=== PATIENT | female | born 1935 | race Caucasian/White ===

== ENCOUNTER 2016-09-02 13:51 | Inpatient (IN) ==
--- NOTE | 2016-09-02 14:34 | Emergency Department Note ---
Disposition Clinical Impression: Weakness, UTI (urinary tract infection) Disposition: Home, Self-Care Condition: Fair Referrals: Darius Oscar MD [Primary Care Provider] - Forms: Work/School Release, ED Satisfaction Letter Time of Disposition: 16:19 ([facility]) General Adult HPI - General Chief complaint: ED General Medical Stated complaint: Unable to walk since Tues/shooting pains in head Time Seen by Provider: 09/02/16 14:00 Source: patient Mode of arrival: wheelchair Limitations: no limitations Nursing Notes Reviewed: Yes Vital Signs Reviewed: Yes - History of Present Illness HPI Narrative: Patient recently diagnosed with urinary tract infection for reasons they decided not to give her antibiotics one is a thought that the anabolic certificate but it was because of her Coumadin that she was taking then had still a seconds going to fill a second prescription but did not fill because they were told not to fill the prescription because not to worry about urinary tract infection as a result the patient's progressively weakened over the past couple weeks now unable to bear weight and ambulate around is actually just getting worse family's brought her in for evaluation at this time and wgt transfer only Discharge from a local nursing care facility for physical therapy admission recently Onset (ago): week(s) Location: other (generalized) Radiation: non-radiation Pain Scale: 0 Quality: aching Consistency: Worsening Improves with: nothing Worsens with: nothing Associated symptoms: Reports: confusion, loss of appetite, malaise, weakness. Denies: chest pain, cough, diaphoresis, fever/chills, headaches, nausea/vomiting , seizure, shortness of breath, syncope Treatments Prior to Arrival: none - Related Data Home Medications Medication Instructions Recorded Confirmed Amitriptyline [Elavil] 25 mg PO HS 09/02/16 09/02/16 Aspirin 81 mg PO DAILY 09/02/16 09/02/16 Atenolol [Tenormin] 25 mg PO DAILY 09/02/16 09/02/16 Atorvastatin [Lipitor] 40 mg PO HS 09/02/16 09/02/16 LORazepam [Ativan] 0.5 mg PO HS 09/02/16 09/02/16 Levothyroxine [Synthroid] 150 mcg PO DAILY 09/02/16 09/02/16 Lisinopril [Zestril] 5 mg PO DAILY 09/02/16 09/02/16 Memantine HCl 5 mg PO DAILY 09/02/16 09/02/16 Omeprazole 20 mg PO DAILY 09/02/16 09/02/16 Warfarin [Coumadin] 2 mg PO 1800 09/02/16 09/02/16 Allergies Allergy/AdvReac Type Severity Reaction Status Date / Time No Known Allergies Allergy Verified 09/02/16 14:12 All systems ED: reviewed and negative except as stated. Constitutional: Reports: weakness. Denies: fever, chills Eyes: Denies: eye pain ENT ED: Denies: ear pain, throat pain, dental pain Cardiovascular: Denies: chest pain, palpitations, dyspnea on exertion Respiratory: Denies: cough, dyspnea, wheezes Gastrointestinal: Denies: abdominal pain, nausea, vomiting Genitourinary: Reports: other (indwelling cath). Denies: urgency, dysuria Musculoskeletal: Denies: back pain, neck pain Integumentary: Denies: abrasion Neurological: Denies: headache Psychiatric: Denies: anxiety Endocrine: Reports: fatigue Hematological/Lymphatic: Denies: easy bleeding Allergic/Immunologic: Denies: facial swelling Past Medical History - Past Medical History Attestation: Yes The following information was validated with the patient. Source: patient, old records reviewed, nursing notes reviewed Medical history: Reports: arthritis, atrial fibrillation, cancer, CVA, dementia , diabetes, GERD, hyperlipidemia, hypertension, malignancy, migraine, myocardial infarction, thyroid disease, syncope, TIA Surgical history: Reports: appendectomy, cholecystectomy Psychiatric history: Reports: anxiety, depression FITTER MACHINIST history: Reports: no FITTER MACHINIST history - Social History Smoking Status: Former smoker Smokeless Tobacco Status: No Alcohol use: Reports: none Drug use: Reports: none Physical Exam - General Limitations: physical limitation (global weakness) General appearance: alert, in no apparent distress - Head Head exam: atraumatic, normocephalic, normal inspection - Eye Eye exam: Present: normal appearance, PERRL, EOMI - ENT ENT exam: normal exam, normal oropharynx, mucous membranes moist, normal external ear exam - Neck Neck exam: Present: normal inspection, full ROM, trachea midline - Chest Chest inspection: Present: normal inspection, symmetric chest wall rise - Respiratory Respiratory exam: Present: normal lung sounds bilaterally - Cardiovascular Cardiovascular exam: Present: regular rate, normal rhythm, normal heart sounds - Abdominal Exam Abdominal exam: Present: soft, Non-Tender, normal bowel sounds. Absent: mass, pulsatile mass - Extremities Exam Extremities exam: Present: normal inspection, full ROM, normal capillary refill , other (global weakness) - Expanded Lower Extremity Exam Gait: observed and normal - Back Exam Back exam: Present: normal inspection, full ROM. Absent: muscle spasm - Neurological Exam Neurological exam: Present: alert, oriented X3, CN II-XII intact - Psychiatric Psychiatric exam: Present: normal affect, normal mood - Skin Skin exam: Present: warm, dry, intact, normal color Course Course Narrative: Patient seen and examined patient was so weak that she would had to be assisted by 2 male staff members to get her even into the bed and move her about as result of the patient was admitted as result of the generalized weakness most likely secondary to the underlying UTI with possible need for her back to the nursing care facility upon return patient admitted services Dr. Merchant who is agreed transferred to [facility] anabolic started in the ER Vital Signs Temperature 97.7 F 09/02/16 13:54 Pulse Rate 78 09/02/16 13:54 Respiratory Rate 18 09/02/16 13:54 Blood Pressure 119/74 09/02/16 13:54 O2 Sat by Pulse Oximetry 100 09/02/16 13:54 Temperature 97.7 F 09/02/16 13:54 Pulse Rate 78 09/02/16 13:54 Respiratory Rate 18 09/02/16 13:54 Blood Pressure 119/74 09/02/16 13:54 O2 Sat by Pulse Oximetry 100 09/02/16 13:54 Oxygen Delivery Oxygen Delivery Room Air Medical Decision Making - [facility] Narrative Medical decision making narrative: UTI or sepsis generalized debilitated state stroke - Medical Records Medical records reviewed: Yes I reviewed the patient's medical records. - Lab Data Lab results reviewed: Yes I reviewed the patient's lab results. - Radiology Data Radiology results reviewed: Yes I reviewed the patient's radiology results. ITS Impressions Head CT 09/02/16 14:34 IMPRESSION: No acute intracranial abnormality. D/ / Vj Riley MD / Vj Riley MD Interpreting Provider: Vj Riley MD Critical Care Time Critical Care Time: No
[2016-09-02 14:49] LABS: Basophils % 0.3 %; Eosinophils # 0.3 K/mcL (0.0-0.6); Eosinophils % 2.1 %; Hematocrit 35.2 % (35.3-44.9); Hemoglobin 11.1 g/dL (11.5-15.4); Immature Granulocytes % 0.4 % (0-4); Lymphocytes # 1.2 K/mcL (0.6-4.6); Lymphocytes % 8.9 %; Mean Corpuscular HGB Conc 31.5 g/dL (31.6-35.5); Mean Corpuscular Hemoglobin 27.9 pg (28.0-33.3); Mean Corpuscular Volume 88.4 fL (83.0-100.0); Mean Platelet Volume 10.2 fL (9.4-12.4); Monocytes % 7.5 %; Neutrophils # 11.1 K/mcL (1.6-8.9); Platelet Count 508 K/mcL (140-400); Red Blood Count 3.98 M/mcL (3.82-4.97); Red Cell Distribution Width 15.4 % (11.5-14.5); Segmented Neutrophils % 80.8 %
[2016-09-02 14:52] LABS: Bilirubin,Urine Small (Negative); Blood,Urine Large (Negative); Clarity,Urine Cloudy (Clear); Color,Urine Yellow (Yellow); Glucose,Urine (UA) Normal (Normal); Ketones,Urine Trace mg/dL (Negative); Leukocyte Esterase,Urine Trace (Negative); Nitrite,Urine Negative (Negative); PH,Urine 5.5 pH Units (5.0-8.0); Protein,Urine >=300 mg/dL (Neg-Trace); Specific Gravity,Urine >= 1.030 (1.010-1.025); Urobilinogen,Urine Normal (Normal)
[2016-09-02 14:56] LABS: INR 2.4; Prothrombin Time 26.7 Seconds (9.4-12.1)
[2016-09-02 14:57] LABS: Squamous Epithelial Cell,Urine Few per lpf (None-Few); WBC,Urine 30-50 per hpf (0-3)
[2016-09-02 14:58] LABS: Bacteria,Urine Moderate per hpf (None-Few); Mucus,Urine Few (Few); Yeast,Urine Moderate per hpf (None Seen)
[2016-09-02 14:58] LABS: Activated Partial Thrombo Time 30.6 Seconds (26.0-36.0)
[2016-09-02 15:05] LABS: BUN/Creatinine Ratio 16 (6-26); Blood Urea Nitrogen 13 mg/dL (7-20); Calcium 8.1 mg/dL (8.6-10.8); Carbon Dioxide 28 mEq/L (19-29); Chloride 99 mEq/L (98-109); Glucose 166 mg/dL (70-99); Osmolality,Calculated 296 (280-300); Potassium 3.1 mEq/L (3.5-4.5); Sodium 141 mEq/L (136-145); eGFR For African Americans > 60 (> 60); eGFR For Non-African Americans > 60 (> 60)
[2016-09-02] MEDS ORDERED: CefTRIAXone 1,000 MG in D5% in Water (Mini-Bag+) 100 ML IVPB STA (16:17)
[2016-09-02] MEDS ORDERED: 0.9 % Sodium Chloride 1,000 ML IVC SCH (16:30)
[2016-09-02] MEDS ORDERED: Naloxone 0.4 MG/ML INJ IVP PRN (17:00)
[2016-09-02] MEDS: *HR* Warfarin 2 MG TABLET PO SCH (23:15)
[2016-09-02] MEDS: *HR* LORazepam 0.5 MG TABLET PO SCH (23:15)
[2016-09-03 06:20] LABS: Basophils # 0.1 K/mcL (0.0-0.2); Basophils % 0.6 %; Eosinophils # 0.5 K/mcL (0.0-0.6); Eosinophils % 4.1 %; Hematocrit 32.9 % (35.3-44.9); Hemoglobin 10.4 g/dL (11.5-15.4); INR 2.1; Immature Granulocytes % 0.9 % (0-4); Lymphocytes # 1.9 K/mcL (0.6-4.6); Lymphocytes % 15.1 %; Mean Corpuscular HGB Conc 31.6 g/dL (31.6-35.5); Mean Corpuscular Hemoglobin 27.7 pg (28.0-33.3); Mean Corpuscular Volume 87.7 fL (83.0-100.0); Neutrophils # 9.1 K/mcL (1.6-8.9); Platelet Count 512 K/mcL (140-400); Prothrombin Time 23.4 Seconds (9.4-12.1); Red Blood Count 3.75 M/mcL (3.82-4.97); Red Cell Distribution Width 15.5 % (11.5-14.5); Segmented Neutrophils % 71.3 %
[2016-09-03 06:34] LABS: BUN/Creatinine Ratio 18 (6-26); Blood Urea Nitrogen 13 mg/dL (7-20); Calcium 7.8 mg/dL (8.6-10.8); Carbon Dioxide 28 mEq/L (19-29); Chloride 102 mEq/L (98-109); Glucose 114 mg/dL (70-99); Magnesium 0.8 mg/dL (1.6-2.6); Osmolality,Calculated 297 (280-300); Phosphorous 2.9 mg/dL (2.3-4.7); Potassium 2.8 mEq/L (3.5-4.5); Sodium 143 mEq/L (136-145); eGFR For African Americans > 60 (> 60); eGFR For Non-African Americans > 60 (> 60)
[2016-09-03] MEDS: 0.9 % Sodium Chloride 1,000 ML IVC SCH ×2 (07:43→22:21)
[2016-09-03] MEDS: Aspirin 81 MG TAB.CHEW PO SCH (09:29)
--- NOTE | 2016-09-03 11:07 | Internal Med History&Physical ---
Date of Encounter: 09/03/16 Time of Encounter: 10:35 Assessment and Plan (1) UTI (urinary tract infection) Current visit: Yes Status: Acute She has been started empirically on Rocephin. We will continue this and add lactobacillus and await final urine culture report. Qualifiers: Urinary tract infection type: site unspecified Hematuria presence: with hematuria Qualified Code(s): N39.0 - Urinary tract infection, site not specified; R31.9 - Hematuria, unspecified (2) Anemia Current visit: Yes Status: Chronic Will order anemia testing in a.m. Qualifiers: Anemia type: unspecified type Qualified Code(s): D64.9 - Anemia, unspecified (3) Hypokalemia Current visit: Yes Status: Acute Etiology not obvious. We will give supplemental potassium and monitor labs (4) DM type 2 (diabetes mellitus, type 2) Current visit: Yes Status: Chronic We will check hemoglobin A1c in a.m. Qualifiers: Diabetes mellitus complication status: with unspecified complications Diabetes mellitus fci insulin use: without fci use Qualified Code( s): E11.8 - Type 2 diabetes mellitus with unspecified complications (5) Hypomagnesemia Current visit: Yes Status: Acute We will give IV magnesium sulfate and recheck labs in a.m. (6) Atrial fibrillation Current visit: No Status: Chronic Continue Coumadin for CVA prophylaxis. Echocardiogram done 07/16/2015 showed LVEF of 50-55%. There is no significant valvular dysfunction. Left atrial size was normal at 2.9 cm. Qualifiers: Atrial fibrillation type: chronic Qualified Code(s): I48.2 - Chronic atrial fibrillation (7) HTN (hypertension) Current visit: No Status: Acute Continue Tenormin and lisinopril and monitor blood pressure. Qualifiers: Hypertension type: essential hypertension Qualified Code(s): I10 - Essential (primary) hypertension Internal Medicine - H&P: HPI Chief complaint: Weakness, UTI Admitted From: Home Plans for Post Hospital Care: Home History of present illness: Ms. Maradiaga is a 80 year old female who was brought to the emergency room by family after she had progressive weakness and diagnosis of urinary tract infection as an outpatient. She was evaluated in emergency room and found to have anemia with leukocytosis and hypokalemia. She was admitted to [facility] floor for ongoing care needs. She is a fair historian. She has a diagnosis of dementia but is able to answer some questions with what seems to be reliable answers. Past Med Surg Social Fam HX - Past Medical History Medical history: arthritis, atrial fibrillation, cancer, CVA, dementia, diabetes , GERD, hyperlipidemia, hypertension, malignancy, migraine, myocardial infarction, thyroid disease, syncope, TIA Psychiatric history: anxiety, depression - Past Surgical History Surgical History: appendectomy, cholecystectomy - Social History Smoking Status: Former smoker Smokeless Tobacco Status: No Alcohol use: none Drug use: none - Family History Daughter Adopted: No Living Status: Still Living Hx Family Cancer: Yes (cervical) Hx Family Endocrine Disorder: Yes (diabetes mellitus) Internal Medicine - H&P: Meds Amitriptyline [Elavil] 25 mg PO HS 09/02/16 [History] Aspirin 81 mg PO DAILY 09/02/16 [History] Atenolol [Tenormin] 25 mg PO DAILY 09/02/16 [History] Atorvastatin [Lipitor] 40 mg PO HS 09/02/16 [History] LORazepam [Ativan] 0.5 mg PO HS 09/02/16 [History] Levothyroxine [Synthroid] 150 mcg PO DAILY 09/02/16 [History] Lisinopril [Zestril] 5 mg PO DAILY 09/02/16 [History] Memantine HCl 5 mg PO DAILY 09/02/16 [History] Omeprazole 20 mg PO DAILY 09/02/16 [History] Warfarin [Coumadin] 2 mg PO 1800 09/02/16 [History] Allergies No Known Allergies Allergy (Verified 09/02/16 14:12) All Systems PM: A 10-system review of systems was performed and is negative for pertinent findings except as documented above in the HPI. Review of systems: General: Her weight has changed minimally from 79.379 kg on 07/15/2015 to 81.647 kg on admission now. Cardiovascular: She has history of hypertension and ASHD status post LA, date unknown. She has chronic atrial fibrillation. She states she had an exercise stress test and heart catheter several years ago. She reports a remote left leg DVT. Respiratory: She reports smoking from age [age] never reaching 2 packs per day. She denies chronic lung disease GI: She has had cholecystectomy. She has a diagnosis of GERD. She denies disorders of her liver or exocrine pancreas : She has had urinary retention in the past but denies other kidney or bladder disorders Neurologic: She claims she has had multiple strokes in the past. Available records show a reported stroke in 2013 for which she received TPA and was transferred [facility]. She had no significant residual neurologic deficit. She reports she had seizures in the past but does not take seizure medication at this time. Endocrine: The chart reports a diagnosis of DM 2 but she denies this. Hemoglobin A1c was slightly elevated at 6.8% on 09/25/2014. She has hypothyroidism and hyperlipidemia Hematology/oncology: She reports right breast cancer in the past but states she is now cancer free and claims a biopsy ( ? excisional) was done. She has a diagnosis of anemia. She denies other internal malignancies Psychiatric: She has depression but denies anxiety or other mental health issues Musk skeletal: She has DJD but denies gout or other bone joint or muscle disorders. - Constitutional Vitals: Temp Pulse Resp BP Pulse Ox 97.9 F 93 17 117/67 92 09/03/16 10:40 09/03/16 10:40 09/03/16 10:40 09/03/16 10:40 09/03/16 10:40 Exam: Gen.: She is a well-developed well-nourished female who appears in no severe distress at present time. HEENT: Head is atraumatic and normal cephalic. Eyes: EOMI. There is no scleral icterus. Mouth: Mucosa is moist. Neck: Supple and nontender. There is no thyromegaly or masses noted. Heart: Irregularly irregular without murmurs or gallops Lungs: No wheezes or crackles are heard. Abdomen: Soft and nontender. No masses or guarding are noted. Extremities: There is no cyanosis edema or clubbing noted. Dorsalis pedis and posttibial pulses are 1-2 over 2 bilaterally. Neurologic: Mental status: She is talkative and seems to be a fair historian at best. She does not know her age, location, or length of stay. Cranial nerves: Smile is symmetric. Forehead wrinkles bilaterally. Tongue protrudes midline. EOMI. Motor: There is no pronator drift. Cerebellar: Finger to nose is intact bilaterally. Skin: Warm and dry Internal Med - H&P Results - Labs CBC & Chem 7: 09/03/16 06:00 09/03/16 06:00 Labs: Short CBC 09/03/16 Range/Units 06:00 WBC 12.8 H (4.3-11.1) K/mcL Hgb 10.4 L (11.5-15.4) g/dL Hct 32.9 L (35.3-44.9) % Plt Count 512 H (140-400) K/mcL Neutrophils # 9.1 H (1.6-8.9) K/mcL BMP 09/03/16 06:00 Sodium 143 Potassium 2.8 L Chloride 102 Carbon Dioxide 28 BUN 13 Creatinine 0.72 Glucose 114 H Calcium 7.8 L
[2016-09-03] MEDS ORDERED: Magnesium Sulfate 1 GM in D5% in Water 100 ML IVPB ONE (11:25)
[2016-09-03] MEDS: CefTRIAXone 1,000 MG in D5% in Water (Mini-Bag+) 100 ML IVPB SCH (12:13)
[2016-09-03] MEDS: Lactobacillus 1 EACH CAP.SPRINK PO SCH ×2 (12:13→21:13)
[2016-09-03] MEDS: *HR* Warfarin 2 MG TABLET PO SCH (17:39)
[2016-09-03 20:23] LABS: Adenovirus F 40/41 PCR Not detected (Not detect); Astrovirus PCR Not detected (Not detect); C.difficile Toxin A/B by PCR Not detected (Not detect); Campylobacter by PCR Not detected (Not detect); Cryptosporidium by PCR Not detected (Not detect); Cyclospora cayetanensis PCR Not detected (Not detect); E. coli O157 by PCR Not detected (Not detect); Entamoeba histolytica PCR Not detected (Not detect); Enteroaggregative E.coli(EAEC) Not detected (Not detect); Enteropathogenic E.coli(EPEC) Not detected (Not detect); Enterotoxigenic E.coli (ETEC) Not detected (Not detect); Giardia lamblia PCR Not detected (Not detect); Norovirus GI/GII PCR Not detected (Not detect); Plesiomonas shigelloides PCR Not detected (Not detect); Rotavirus A PCR Not detected (Not detect); Salmonella PCR Not detected (Not detect); Sapovirus PCR Not detected (Not detect); Shig/EnteroinvasiveE coli EIEC Not detected (Not detect); Shigalike tox-prod E coli STEC Not detected (Not detect); Vibrio PCR Not detected (Not detect); Vibrio cholerae PCR Not detected (Not detect); Yersinia enterocolitica PCR Not detected (Not detect)
[2016-09-03] MEDS: *HR* LORazepam 0.5 MG TABLET PO SCH (21:16)
[2016-09-04 06:29] LABS: Basophils # 0.1 K/mcL (0.0-0.2); Basophils % 0.5 %; Eosinophils # 0.7 K/mcL (0.0-0.6); Eosinophils % 5.7 %; Hemoglobin 9.6 g/dL (11.5-15.4); Immature Granulocytes % 0.6 % (0-4); Lymphocytes # 1.9 K/mcL (0.6-4.6); Lymphocytes % 16.1 %; Mean Corpuscular Hemoglobin 27.8 pg (28.0-33.3); Mean Platelet Volume 9.8 fL (9.4-12.4); Monocytes # 0.9 K/mcL (0.0-1.3); Monocytes % 7.4 %; Neutrophils # 8.2 K/mcL (1.6-8.9); Platelet Count 499 K/mcL (140-400); Red Blood Count 3.45 M/mcL (3.82-4.97); Red Cell Distribution Width 15.3 % (11.5-14.5); Segmented Neutrophils % 69.7 %
[2016-09-04 06:41] LABS: Magnesium 0.9 mg/dL (1.6-2.6)
[2016-09-04 07:07] LABS: Thyroid Stimulating Hormone 0.908 mcIU/mL (0.350-4.840)
[2016-09-04 08:20] LABS: Hemoglobin A1C 6.4 %
--- NOTE | 2016-09-04 10:27 | Internal Med Progress Note ---
Date of Encounter: 09/04/16 Time of Encounter: 10:15 - Assessment and plan (1) UTI (urinary tract infection) Current Visit: Yes Status: Acute Assessment and plan: September 04. Most likely asymptomatic bacteriuria. Urine culture was negative. We will discontinue Rocephin. Qualifiers: Urinary tract infection type: site unspecified Hematuria presence: with hematuria Qualified Code(s): N39.0 - Urinary tract infection, site not specified; R31.9 - Hematuria, unspecified (2) Anemia Current Visit: Yes Status: Chronic Assessment and plan: September 04. Anemia testing is pending. Recheck labs in a.m. Qualifiers: Anemia type: unspecified type Qualified Code(s): D64.9 - Anemia, unspecified (3) Hypokalemia Current Visit: Yes Status: Acute Assessment and plan: September 04. Continue supplemental potassium. Recheck labs in a.m. (4) DM type 2 (diabetes mellitus, type 2) Current Visit: Yes Status: Chronic Assessment and plan: September 04. Hemoglobin A1c was 6.4%. Accu-Cheks are acceptable. She remains diet controlled. Qualifiers: Diabetes mellitus complication status: with unspecified complications Diabetes mellitus group home insulin use: without group home use Qualified Code( s): E11.8 - Type 2 diabetes mellitus with unspecified complications (5) Hypomagnesemia Current Visit: Yes Status: Acute Assessment and plan: September 04. Magnesium level minimally changed at 0.9. We will give another 1 gram of magnesium sulfate IV and recheck labs in a.m. (6) Atrial fibrillation Current Visit: No Status: Chronic Assessment and plan: September 04. Echocardiogram done 07/16/2015 showed LVEF of 50-55%. There is no significant valvular dysfunction. Left atrial size was normal at 2.9 cm. Continue Coumadin Qualifiers: Atrial fibrillation type: chronic Qualified Code(s): I48.2 - Chronic atrial fibrillation (7) HTN (hypertension) Current Visit: No Status: Acute Assessment and plan: September 04. Blood pressures are fluctuating significantly. Continue Tenormin and lisinopril at present doses. Qualifiers: Hypertension type: essential hypertension Qualified Code(s): I10 - Essential (primary) hypertension - Subjective Interval history: September 04. She has no new complaints. She denies pain or dyspnea. Nursing reports she has pulled 4 IVs out - Constitutional Vitals: Temp Pulse Resp BP Pulse Ox 97.8 F 100 18 175/84 93 09/04/16 06:26 09/04/16 08:08 09/04/16 06:26 09/04/16 06:26 09/04/16 08:08 Exam: She is resting comfortably in bed. Her heart is irregularly irregular with rate approximately 100/m. Lungs are clear anteriorly. Extremities show no edema. Internal Medicine: Result - Labs CBC & Chem 7: 09/04/16 06:13 09/03/16 06:00 Labs: Short CBC 09/04/16 Range/Units 06:13 WBC 11.8 H (4.3-11.1) K/mcL Hgb 9.6 L (11.5-15.4) g/dL Hct 30.0 L (35.3-44.9) % Plt Count 499 H (140-400) K/mcL Neutrophils # 8.2 (1.6-8.9) K/mcL - ABG Interpretation ABG results: PT/INR, D-dimer PT 23.4 Seconds (9.4-12.1) H 09/03/16 06:00 Consult Discharge Plan - Plan Referrals: Darius Oscar MD [Primary Care Provider] - 1 week
[2016-09-04] MEDS ORDERED: Magnesium Sulfate 1 GM in D5% in Water 100 ML IVPB ONE (10:32)
[2016-09-04 11:28] LABS: Folate 9.6 ng/mL (7.0-31.4)
[2016-09-04] MEDS: CefTRIAXone 1,000 MG in D5% in Water (Mini-Bag+) 100 ML IVPB SCH (11:41)
[2016-09-04] MEDS: Lactobacillus 1 EACH CAP.SPRINK PO SCH (11:41)
[2016-09-04] MEDS: Aspirin 81 MG TAB.CHEW PO SCH (11:59)
[2016-09-04] MEDS: *HR* Warfarin 2 MG TABLET PO SCH (17:30)
[2016-09-04] MEDS: *HR* LORazepam 0.5 MG TABLET PO SCH (19:58)
[2016-09-05 06:06] LABS: INR 1.6; Prothrombin Time 17.2 Seconds (9.4-12.1)
[2016-09-05 06:08] LABS: Basophils # 0.1 K/mcL (0.0-0.2); Basophils % 0.5 %; Eosinophils # 0.5 K/mcL (0.0-0.6); Eosinophils % 3.6 %; Hematocrit 31.5 % (35.3-44.9); Hemoglobin 9.9 g/dL (11.5-15.4); Immature Granulocytes % 0.6 % (0-4); Lymphocytes # 1.8 K/mcL (0.6-4.6); Lymphocytes % 14.1 %; Mean Corpuscular HGB Conc 31.4 g/dL (31.6-35.5); Mean Corpuscular Hemoglobin 27.5 pg (28.0-33.3); Mean Corpuscular Volume 87.5 fL (83.0-100.0); Monocytes % 7.6 %; Neutrophils # 9.4 K/mcL (1.6-8.9); Platelet Count 529 K/mcL (140-400); Red Cell Distribution Width 15.5 % (11.5-14.5); Segmented Neutrophils % 73.6 %
[2016-09-05 06:19] LABS: BUN/Creatinine Ratio 13 (6-26); Blood Urea Nitrogen 9 mg/dL (7-20); Calcium 8.2 mg/dL (8.6-10.8); Carbon Dioxide 27 mEq/L (19-29); Chloride 102 mEq/L (98-109); Glucose 104 mg/dL (70-99); Osmolality,Calculated 289 (280-300); Potassium 3.9 mEq/L (3.5-4.5); Sodium 140 mEq/L (136-145); eGFR For African Americans > 60 (> 60); eGFR For Non-African Americans > 60 (> 60)
[2016-09-05] MEDS: Aspirin 81 MG TAB.CHEW PO SCH (09:09)
--- NOTE | 2016-09-05 11:03 | Internal Med Progress Note ---
Date of Encounter: 09/05/16 Time of Encounter: 10:50 - Assessment and plan (1) UTI (urinary tract infection) Current Visit: Yes Status: Acute Assessment and plan: September 04. Most likely asymptomatic bacteriuria. Urine culture was negative. We will discontinue Rocephin. September 05. Continue to observe off antibiotics. Qualifiers: Urinary tract infection type: site unspecified Hematuria presence: with hematuria Qualified Code(s): N39.0 - Urinary tract infection, site not specified; R31.9 - Hematuria, unspecified (2) Anemia Current Visit: Yes Status: Chronic Assessment and plan: September 04. Anemia testing is pending. Recheck labs in a.m. September 05. Anemia testing showed iron 15, transferrin saturation 7%, and ferritin 450. B12 and folate were normal 367 and 9.6 respectively. We will start trial of ferrous sulfate and vitamin C in a.m. Qualifiers: Anemia type: unspecified type Qualified Code(s): D64.9 - Anemia, unspecified (3) Hypokalemia Current Visit: Yes Status: Acute Assessment and plan: September 04. Continue supplemental potassium. Recheck labs in a.m. September 05. Resolved. Continue supplemental potassium and monitor labs. (4) DM type 2 (diabetes mellitus, type 2) Current Visit: Yes Status: Chronic Assessment and plan: September 04. Hemoglobin A1c was 6.4%. Accu-Cheks are acceptable. She remains diet controlled. Qualifiers: Diabetes mellitus complication status: with unspecified complications Diabetes mellitus termite technician insulin use: without termite technician use Qualified Code( s): E11.8 - Type 2 diabetes mellitus with unspecified complications (5) Hypomagnesemia Current Visit: Yes Status: Acute Assessment and plan: September 04. Magnesium level minimally changed at 0.9. We will give another 1 gram of magnesium sulfate IV and recheck labs in a.m. September 05. Continue to monitor magnesium level. (6) Atrial fibrillation Current Visit: No Status: Chronic Assessment and plan: September 04. Echocardiogram done 07/16/2015 showed LVEF of 50-55%. There is no significant valvular dysfunction. Left atrial size was normal at 2.9 cm. Continue Coumadin Qualifiers: Atrial fibrillation type: chronic Qualified Code(s): I48.2 - Chronic atrial fibrillation (7) HTN (hypertension) Current Visit: No Status: Acute Qualifiers: Hypertension type: essential hypertension Qualified Code(s): I10 - Essential (primary) hypertension - Subjective Interval history: September 04. She has no new complaints. She denies pain or dyspnea. Nursing reports she has pulled 4 IVs out September 05. She has no new complaints. - Constitutional Vitals: Temp Pulse Resp BP Pulse Ox 98.3 F 93 17 171/84 92 09/05/16 06:50 09/05/16 08:15 09/05/16 08:15 09/05/16 08:15 09/05/16 08:15 Exam: She is resting comfortably in bed and appears in no acute distress. Her affect is cheerful. Heart is irregular. Lungs are clear. Extremities show no pitting edema. I reviewed her medications and lab results. Internal Medicine: Result - Labs CBC & Chem 7: 09/05/16 05:20 09/05/16 05:20 Labs: Short CBC 09/05/16 Range/Units 05:20 WBC 12.7 H (4.3-11.1) K/mcL Hgb 9.9 L (11.5-15.4) g/dL Hct 31.5 L (35.3-44.9) % Plt Count 529 H (140-400) K/mcL Neutrophils # 9.4 H (1.6-8.9) K/mcL BMP 09/05/16 05:20 Sodium 140 Potassium 3.9 D Chloride 102 Carbon Dioxide 27 BUN 9 Creatinine 0.68 Glucose 104 H Calcium 8.2 L - ABG Interpretation ABG results: PT/INR, D-dimer PT 17.2 Seconds (9.4-12.1) H 09/05/16 05:20 Consult Discharge Plan - Plan Referrals: Darius Oscar MD [Primary Care Provider] - 1 week
[2016-09-05] MEDS: Magnesium Oxide 400 MG TABLET PO SCH ×2 (12:05→19:50)
[2016-09-05] MEDS: *HR* Warfarin 2 MG TABLET PO SCH (17:45)
[2016-09-05] MEDS: *HR* LORazepam 0.5 MG TABLET PO SCH (19:50)
[2016-09-06] MEDS: Ascorbic Acid 500 MG TABLET PO SCH ×2 (05:14→08:00)
[2016-09-06 06:42] LABS: Basophils # 0.1 K/mcL (0.0-0.2); Basophils % 0.4 %; Eosinophils # 0.3 K/mcL (0.0-0.6); Eosinophils % 1.9 %; Hematocrit 34.8 % (35.3-44.9); Hemoglobin 10.9 g/dL (11.5-15.4); Immature Granulocytes % 0.8 % (0-4); Lymphocytes % 16.3 %; Mean Corpuscular HGB Conc 31.3 g/dL (31.6-35.5); Mean Corpuscular Hemoglobin 27.5 pg (28.0-33.3); Mean Corpuscular Volume 87.9 fL (83.0-100.0); Mean Platelet Volume 9.7 fL (9.4-12.4); Monocytes # 0.8 K/mcL (0.0-1.3); Monocytes % 5.8 %; Platelet Count 571 K/mcL (140-400); Red Blood Count 3.96 M/mcL (3.82-4.97); Red Cell Distribution Width 15.5 % (11.5-14.5); Segmented Neutrophils % 74.8 %
[2016-09-06 06:44] LABS: Lymphocytes # 2.4 K/mcL (0.6-4.6); Neutrophils # 10.8 K/mcL (1.6-8.9)
[2016-09-06 06:48] LABS: INR 1.6
[2016-09-06 07:03] LABS: Alanine Aminotransferase 22 Units/L (0-55); Albumin 2.8 g/dL (3.5-5.0); Albumin/Globulin Ratio 0.7 (1.1-2.2); Alkaline Phosphatase 154 Units/L (38-126); Aspartate Amino Transferase 28 Units/L (5-34); BUN/Creatinine Ratio 13 (6-26); Bilirubin,Total 0.6 mg/dL (0.2-1.2); Blood Urea Nitrogen 10 mg/dL (7-20); Calcium 8.8 mg/dL (8.6-10.8); Carbon Dioxide 27 mEq/L (19-29); Chloride 99 mEq/L (98-109); Globulin 4.1 g/dL (2.4-3.5); Glucose 164 mg/dL (70-99); Magnesium 1.2 mg/dL (1.6-2.6); Osmolality,Calculated 291 (280-300); Potassium 3.7 mEq/L (3.5-4.5); Sodium 139 mEq/L (136-145); Total Protein 6.9 g/dL (6.0-8.3); eGFR For African Americans > 60 (> 60); eGFR For Non-African Americans > 60 (> 60)
[2016-09-06] MEDS: Magnesium Oxide 400 MG TABLET PO SCH (07:55)
[2016-09-06] MEDS: Aspirin 81 MG TAB.CHEW PO SCH (07:55)
--- NOTE | 2016-09-06 12:11 | Discharge Summary ---
Date of Encounter: 09/06/16 Time of Encounter: 11:50 - Discharge Diagnosis (1) UTI (urinary tract infection) Priority: Primary Status: Resolved Qualifiers: Urinary tract infection type: site unspecified Hematuria presence: with hematuria Qualified Code(s): N39.0 - Urinary tract infection, site not specified; R31.9 - Hematuria, unspecified (2) Anemia Priority: Secondary Status: Chronic Qualifiers: Anemia type: iron deficiency Iron deficiency anemia type: unspecified iron deficiency Qualified Code(s): D50.9 - Iron deficiency anemia, unspecified (3) Hypokalemia Priority: Secondary Status: Resolved (4) DM type 2 (diabetes mellitus, type 2) Priority: Secondary Status: Chronic Qualifiers: Diabetes mellitus complication status: with unspecified complications Diabetes mellitus multi care technician insulin use: without correction use Qualified Code( s): E11.8 - Type 2 diabetes mellitus with unspecified complications (5) Hypomagnesemia Priority: Secondary Status: Acute (6) Atrial fibrillation Priority: Secondary Status: Chronic Qualifiers: Atrial fibrillation type: chronic Qualified Code(s): I48.2 - Chronic atrial fibrillation (7) HTN (hypertension) Priority: Secondary Status: Chronic Qualifiers: Hypertension type: essential hypertension Qualified Code(s): I10 - Essential (primary) hypertension - Discharge Medications Home Medications: Amitriptyline [Elavil] 25 mg PO HS 09/02/16 [History] Aspirin 81 mg PO DAILY 09/02/16 [History] Atenolol [Tenormin] 25 mg PO DAILY 09/02/16 [History] Atorvastatin [Lipitor] 40 mg PO HS 09/02/16 [History] LORazepam [Ativan] 0.5 mg PO HS 09/02/16 [History] Levothyroxine [Synthroid] 150 mcg PO DAILY 09/02/16 [History] Omeprazole 20 mg PO DAILY 09/02/16 [History] Warfarin [Coumadin] 2 mg PO 1800 09/02/16 [History] Ascorbic Acid [Vitamin C] 500 mg PO DAILY@0630 tablet 09/06/16 [Rx] Ferrous Sulfate 325 mg PO DAILY@0630 tablet 09/06/16 [Rx] Lisinopril [Zestril] 20 mg PO DAILY #0 09/06/16 [Rx] Magnesium Oxide [Mag-Ox] 400 mg PO BID tablet 09/06/16 [Rx] Memantine HCl 10 mg PO DAILY #0 09/06/16 [Rx] Potassium Chloride 20 meq PO BID tab.er.prt 09/06/16 [Rx] Allergies/Adverse Reactions: Allergies No Known Allergies Allergy (Verified 09/02/16 14:12) Procedures/tests Complete & Pending: Procedures Performed prior 72 hours Category Date Time Status CT head/brain wo con [CT] Stat Cat Scan 09/06/16 23:[address] pelvis wo no iv no oral [CT] Stat Cat Scan 09/06/16 23:42 Completed Date of admission: 09/03/16 18:44 Primary care physician: Darius Oscar MD - Patient Status Disposition: Transfer Hospital Swing Bed Condition: Fair Functional capacity at discharge: uses cane/walker Overall status at discharge: patient is progressing back to baseline - Discharge Instructions - Diet and Activity Diet: diabetic diet Hospital course: Ms. Maradiaga is a 80 year old female who was brought to the emergency room by family after she had progressive weakness and diagnosis of urinary tract infection as an outpatient. She was evaluated in emergency room and found to have anemia with leukocytosis and hypokalemia. She was admitted to [facility] for ongoing care needs. Initial orders were written emergency room physician. I saw her on September 03 and performed history and physical. She was given Rocephin empirically for possible UTI. Urine culture returned showing no growth so Rocephin was discontinued. The Kasper catheter was discontinued on September 05 and she had spontaneous voiding. Physical therapy and occupational therapy evaluations with ongoing interventions were done. She progressed satisfactorily and will continue therapy in swing bed. Anemia testing showed iron 15, transferrin saturation 7%, and ferritin 450. B12 and folate were normal 367 and 9.6 respectively. She was started on ferrous sulfate and vitamin C . These will be continued in swing bed. Hypokalemia resolved with supplemental potassium. This will be continued in swing bed. She was given magnesium sulfate by the IV and oral routes. Her magnesium level had improved to 1.2 on day of discharge to swing bed. She will continue oral magnesium supplementation She remained in atrial fibrillation during her hospital stay. Coumadin was continued. On September 06 arrangements were completed for her to be discharged into swing bed where she will continue to receive rehabilitation therapy. - Time Spent with Patient Total time spent providing and/or coordinating discharge services: - Constitutional Vitals: Temp Pulse Resp BP Pulse Ox 97.7 F 86 16 153/68 96 09/06/16 10:33 09/06/16 10:33 09/06/16 10:33 09/06/16 10:33 09/06/16 10:33
[2016-09-06 14:27] VITALS: BP 155/96
[2016-09-07] MEDS ORDERED: Ascorbic Acid 500 MG TABLET PO SCH (06:30)
== END 2016-09-06 14:32 | disposition other institution (70) | DRG 812 ==
LOC: INPPIK 13:51 → EMEROOPIK 13:51 → INPPIK 16:51
PROVIDERS: ADMIT Internal Medicine; ATTEND Internal Medicine

== ENCOUNTER 2016-09-06 14:53 | Inpatient (IN) ==
[2016-09-06] MEDS: *HR* Warfarin 2 MG TABLET PO SCH (18:53)
[2016-09-06] MEDS ORDERED: D5% in Water 1,000 ML IVC PRN (20:08)
[2016-09-06] MEDS ORDERED: Dextrose Gel 15 GM PO PRN ×2 (20:08)
[2016-09-06] MEDS ORDERED: *HR* Dextrose 50 % in Water (Syg) 50 ML SYRINGE IVP PRN (20:08)
[2016-09-06] MEDS: Magnesium Oxide 400 MG TABLET PO SCH (20:38)
[2016-09-06] MEDS: *HR* LORazepam 0.5 MG TABLET PO SCH (20:38)
[2016-09-06] MEDS: Insulin LISPRO 300 UNITS/3 ML VIAL SQ SCH (20:39)
[2016-09-07 04:48] LABS: Basophils # 0.1 K/mcL (0.0-0.2); Basophils % 0.4 %; Eosinophils # 0.5 K/mcL (0.0-0.6); Eosinophils % 2.9 %; Hematocrit 32.7 % (35.3-44.9); Hemoglobin 10.4 g/dL (11.5-15.4); Immature Granulocytes % 0.6 % (0-4); Lymphocytes # 2.3 K/mcL (0.6-4.6); Lymphocytes % 13.2 %; Mean Corpuscular HGB Conc 31.8 g/dL (31.6-35.5); Mean Corpuscular Hemoglobin 27.4 pg (28.0-33.3); Mean Corpuscular Volume 86.3 fL (83.0-100.0); Mean Platelet Volume 10.2 fL (9.4-12.4); Monocytes # 1.1 K/mcL (0.0-1.3); Monocytes % 6.5 %; Neutrophils # 13.1 K/mcL (1.6-8.9); Platelet Count 562 K/mcL (140-400); Red Blood Count 3.79 M/mcL (3.82-4.97); Red Cell Distribution Width 15.4 % (11.5-14.5); Segmented Neutrophils % 76.4 %
[2016-09-07 04:53] LABS: INR 1.7; Prothrombin Time 18.3 Seconds (9.4-12.1)
[2016-09-07 04:56] LABS: Activated Partial Thrombo Time 30.3 Seconds (26.0-36.0)
[2016-09-07 05:09] LABS: BUN/Creatinine Ratio 12 (6-26); Blood Urea Nitrogen 9 mg/dL (7-20); Calcium 8.5 mg/dL (8.6-10.8); Carbon Dioxide 26 mEq/L (19-29); Chloride 97 mEq/L (98-109); Glucose 143 mg/dL (70-99); Osmolality,Calculated 279 (280-300); Potassium 4.7 mEq/L (3.5-4.5); Sodium 134 mEq/L (136-145); eGFR For African Americans > 60 (> 60); eGFR For Non-African Americans > 60 (> 60)
[2016-09-07] MEDS ORDERED: Ascorbic Acid 500 MG TABLET PO SCH (06:30)
[2016-09-07] MEDS ORDERED: Trolamine Salicylate/Aloe Vera 35.4 GM TUBE TP PRN (06:42)
[2016-09-07] MEDS: Insulin LISPRO 300 UNITS/3 ML VIAL SQ SCH ×4 (08:06→22:10)
[2016-09-07] MEDS: Magnesium Oxide 400 MG TABLET PO SCH ×2 (08:06→22:10)
[2016-09-07] MEDS: Lisinopril 20 MG TABLET PO SCH (08:07)
[2016-09-07] MEDS: Aspirin 81 MG TAB.CHEW PO SCH (08:07)
[2016-09-07] MEDS: *HR* Warfarin 2 MG TABLET PO SCH (19:06)
[2016-09-07] MEDS: *HR* LORazepam 0.5 MG TABLET PO SCH (22:10)
[2016-09-08] MEDS: Insulin LISPRO 300 UNITS/3 ML VIAL SQ SCH ×4 (07:53→21:09)
[2016-09-08] MEDS: Aspirin 81 MG TAB.CHEW PO SCH (08:05)
[2016-09-08] MEDS: Lisinopril 20 MG TABLET PO SCH (08:06)
[2016-09-08] MEDS: Magnesium Oxide 400 MG TABLET PO SCH ×2 (08:06→21:08)
[2016-09-08] MEDS ORDERED: Ascorbic Acid 500 MG TABLET PO SCH (09:00)
--- NOTE | 2016-09-08 12:31 | Internal Med Progress Note ---
Date of Encounter: 09/08/16 Time of Encounter: 12:20 - Assessment and plan (1) Weakness Current Visit: No Status: Acute Assessment and plan: September 08. Continue PT and OT intervention. (2) Atrial fibrillation Current Visit: No Status: Chronic Assessment and plan: September 08. Echocardiogram done 07/16/2015 showed LVEF of 50-55%. There is no significant valvular dysfunction. Left atrial size was normal at 2.9 cm. Continue Coumadin Qualifiers: Atrial fibrillation type: chronic Qualified Code(s): I48.2 - Chronic atrial fibrillation (3) Anemia Current Visit: No Status: Chronic Assessment and plan: September 08. Continue ferrous sulfate and vitamin C. Anemia testing done 2016 Qualifiers: Anemia type: iron deficiency Iron deficiency anemia type: unspecified iron deficiency Qualified Code(s): D50.9 - Iron deficiency anemia, unspecified (4) Hypokalemia Current Visit: No Status: Resolved Assessment and plan: September 08. Continue supplemental potassium and monitor labs. (5) DM type 2 (diabetes mellitus, type 2) Current Visit: No Status: Chronic Assessment and plan: September 08. Hemoglobin A1c was 6.4%. Accu-Cheks are acceptable. She remains diet controlled. Qualifiers: Diabetes mellitus complication status: with unspecified complications Diabetes mellitus intermodal customer service insulin use: without intermodal customer service use Qualified Code( s): E11.8 - Type 2 diabetes mellitus with unspecified complications (6) Hypomagnesemia Current Visit: No Status: Acute Assessment and plan: September 08. Continue magnesium supplementation and recheck labs in a.m. (7) Urinary retention Current Visit: Yes Status: Acute Assessment and plan: September 08. Will start Urecholine - Subjective Interval history: September 08. She was hospitalized in acute care September 02- after presenting to ER with weakness. It was initially felt she possibly had UTI but urine culture was negative and antibiotics were not continued. She was also treated for anemia, hypokalemia, and hypomagnesemia. She was discharged to swing bed for ongoing rehabilitation therapy prior to discharge home. She is sitting in a chair at present and has no new complaints. - Constitutional Vitals: Temp Pulse Resp BP Pulse Ox 98.8 F 100 18 126/76 97 09/08/16 08:22 09/08/16 08:22 09/08/16 08:22 09/08/16 08:22 09/08/16 08:22 Exam: Her affect is bright and cheerful. Heart is irregularly irregular. Lungs are clear. Extremities show no edema. I reviewed her medications and recent labs. Internal Medicine: Result - Labs CBC & Chem 7: 09/07/16 04:15 09/07/16 04:15 - ABG Interpretation ABG results: PT/INR, D-dimer PT 18.3 Seconds (9.4-12.1) H 09/07/16 04:15 Consult Discharge Plan - Plan Referrals: Darius Oscar MD [Primary Care Provider] - 1 week
[2016-09-08] MEDS ORDERED: *HR* LORazepam 0.5 MG TABLET PO PRN (15:40)
[2016-09-08] MEDS: *HR* Warfarin 2 MG TABLET PO SCH (16:49)
[2016-09-09 05:44] LABS: Basophils # 0.1 K/mcL (0.0-0.2); Basophils % 0.5 %; Eosinophils # 0.6 K/mcL (0.0-0.6); Eosinophils % 4.5 %; Hemoglobin 10.5 g/dL (11.5-15.4); Immature Granulocytes % 1.2 % (0-4); Lymphocytes # 2.4 K/mcL (0.6-4.6); Lymphocytes % 17.8 %; Mean Corpuscular HGB Conc 31.8 g/dL (31.6-35.5); Mean Corpuscular Hemoglobin 27.4 pg (28.0-33.3); Mean Corpuscular Volume 86.2 fL (83.0-100.0); Mean Platelet Volume 10.3 fL (9.4-12.4); Monocytes # 1.2 K/mcL (0.0-1.3); Monocytes % 8.4 %; Platelet Count 550 K/mcL (140-400); Red Blood Count 3.83 M/mcL (3.82-4.97); Red Cell Distribution Width 15.9 % (11.5-14.5); Segmented Neutrophils % 67.6 %
[2016-09-09 05:49] LABS: INR 1.5; Prothrombin Time 16.1 Seconds (9.4-12.1)
[2016-09-09 05:58] LABS: Neutrophils # 9.3 K/mcL (1.6-8.9)
[2016-09-09 06:03] LABS: BUN/Creatinine Ratio 16 (6-26); Blood Urea Nitrogen 12 mg/dL (7-20); Carbon Dioxide 26 mEq/L (19-29); Chloride 100 mEq/L (98-109); Glucose 109 mg/dL (70-99); Magnesium 1.2 mg/dL (1.6-2.6); Osmolality,Calculated 284 (280-300); Potassium 4.7 mEq/L (3.5-4.5); Sodium 137 mEq/L (136-145); eGFR For African Americans > 60 (> 60); eGFR For Non-African Americans > 60 (> 60)
[2016-09-09] MEDS: Ascorbic Acid 500 MG TABLET PO SCH (06:47)
[2016-09-09] MEDS: Lisinopril 20 MG TABLET PO SCH (10:11)
[2016-09-09] MEDS: Aspirin 81 MG TAB.CHEW PO SCH (10:11)
[2016-09-09] MEDS: Magnesium Oxide 400 MG TABLET PO SCH ×2 (10:12→21:38)
[2016-09-09] MEDS: Insulin LISPRO 300 UNITS/3 ML VIAL SQ SCH ×3 (12:51→19:18)
[2016-09-09] MEDS: *HR* Warfarin 2 MG TABLET PO SCH (19:20)
[2016-09-10] MEDS: Insulin LISPRO 300 UNITS/3 ML VIAL SQ SCH ×5 (00:36→21:21)
[2016-09-10] MEDS: Ascorbic Acid 500 MG TABLET PO SCH (06:24)
[2016-09-10] MEDS: Lisinopril 20 MG TABLET PO SCH (08:35)
[2016-09-10] MEDS: Aspirin 81 MG TAB.CHEW PO SCH (08:35)
[2016-09-10] MEDS: Magnesium Oxide 400 MG TABLET PO SCH ×2 (08:35→21:13)
[2016-09-10] MEDS: *HR* Warfarin 2 MG TABLET PO SCH (17:06)
--- NOTE | 2016-09-10 18:39 | Internal Med Progress Note ---
Date of Encounter: 09/10/16 Time of Encounter: 18:30 - Assessment and plan (1) Weakness Current Visit: No Status: Acute Assessment and plan: September 08. Continue PT and OT intervention. (2) Atrial fibrillation Current Visit: No Status: Chronic Assessment and plan: September 08. Echocardiogram done 07/16/2015 showed LVEF of 50-55%. There is no significant valvular dysfunction. Left atrial size was normal at 2.9 cm. Continue Coumadin September 10. Continue Coumadin. Will change from atenolol to Toprol-XL to better control blood pressure and heart rate Qualifiers: Atrial fibrillation type: chronic Qualified Code(s): I48.2 - Chronic atrial fibrillation (3) Anemia Current Visit: No Status: Chronic Assessment and plan: September 08. Continue ferrous sulfate and vitamin C. Anemia testing done 2016September 10. We will recheck CBC and other labs in a.m. Qualifiers: Anemia type: iron deficiency Iron deficiency anemia type: unspecified iron deficiency Qualified Code(s): D50.9 - Iron deficiency anemia, unspecified (4) DM type 2 (diabetes mellitus, type 2) Current Visit: No Status: Chronic Assessment and plan: September 08. Hemoglobin A1c was 6.4%. Accu-Cheks are acceptable. She remains diet controlled. Qualifiers: Diabetes mellitus complication status: with unspecified complications Diabetes mellitus custodial insulin use: without terminal worker use Qualified Code( s): E11.8 - Type 2 diabetes mellitus with unspecified complications (5) Hypomagnesemia Current Visit: No Status: Acute Assessment and plan: September 08. Continue magnesium supplementation and recheck labs in a.m. September 10. Magnesium level remains low at 1.2. We will increase magnesium oxide to t.i.d. (6) Urinary retention Current Visit: Yes Status: Acute Assessment and plan: September 08. Will start Urecholine September 10. Continue Urecholine - Subjective Interval history: September 08. She was hospitalized in acute care September 02- after presenting to ER with weakness. It was initially felt she possibly had UTI but urine culture was negative and antibiotics were not continued. She was also treated for anemia, hypokalemia, and hypomagnesemia. She was discharged to swing bed for ongoing rehabilitation therapy prior to discharge home. She is sitting in a chair at present and has no new complaints. September 10. She has no new complaints. - Constitutional Vitals: Temp Pulse Resp BP Pulse Ox 97.7 F 93 18 149/73 95 09/10/16 06:52 09/10/16 06:52 09/10/16 06:52 09/10/16 06:52 09/10/16 06:52 Exam: She is resting comfortably in bed. Heart is irregularly irregular. Lungs are clear anteriorly. Extremities show no edema. I reviewed her medications. I reviewed her lab results from 09/09/2016. Internal Medicine: Result - Labs CBC & Chem 7: 09/09/16 04:10 09/09/16 04:10 - ABG Interpretation ABG results: PT/INR, D-dimer PT 16.1 Seconds (9.4-12.1) H 09/09/16 04:10 Consult Discharge Plan - Plan Referrals: Darius Oscar MD [Primary Care Provider] - 1 week
[2016-09-10] MEDS: Metoprolol XL (24 HR) Succ 50 MG TAB.ER.24H PO SCH (21:16)
[2016-09-11] MEDS: Magnesium Oxide 400 MG TABLET PO SCH ×2 (05:33→17:13)
[2016-09-11] MEDS: Ascorbic Acid 500 MG TABLET PO SCH (05:33)
[2016-09-11 06:19] LABS: Basophils # 0.1 K/mcL (0.0-0.2); Basophils % 0.8 %; Eosinophils # 0.4 K/mcL (0.0-0.6); Eosinophils % 2.9 %; Hematocrit 36.5 % (35.3-44.9); Hemoglobin 11.5 g/dL (11.5-15.4); Immature Granulocytes % 1.2 % (0-4); Mean Corpuscular HGB Conc 31.5 g/dL (31.6-35.5); Mean Corpuscular Hemoglobin 27.4 pg (28.0-33.3); Mean Corpuscular Volume 87.1 fL (83.0-100.0); Mean Platelet Volume 10.1 fL (9.4-12.4); Monocytes # 1.1 K/mcL (0.0-1.3); Monocytes % 8.1 %; Neutrophils # 8.3 K/mcL (1.6-8.9); Platelet Count 660 K/mcL (140-400); Red Blood Count 4.19 M/mcL (3.82-4.97); Red Cell Distribution Width 15.9 % (11.5-14.5)
[2016-09-11 06:21] LABS: INR 1.3; Prothrombin Time 14.6 Seconds (9.4-12.1)
[2016-09-11 06:39] LABS: BUN/Creatinine Ratio 14 (6-26); Blood Urea Nitrogen 13 mg/dL (7-20); Calcium 9.4 mg/dL (8.6-10.8); Carbon Dioxide 28 mEq/L (19-29); Chloride 96 mEq/L (98-109); Glucose 121 mg/dL (70-99); Magnesium 1.4 mg/dL (1.6-2.6); Osmolality,Calculated 285 (280-300); Potassium 4.7 mEq/L (3.5-4.5); Sodium 137 mEq/L (136-145); eGFR For African Americans > 60 (> 60); eGFR For Non-African Americans 58 (> 60)
[2016-09-11] MEDS: Insulin LISPRO 300 UNITS/3 ML VIAL SQ SCH ×4 (08:01→20:58)
[2016-09-11] MEDS: Lisinopril 20 MG TABLET PO SCH (08:14)
[2016-09-11] MEDS: Aspirin 81 MG TAB.CHEW PO SCH (08:14)
[2016-09-11] MEDS: Metoprolol XL (24 HR) Succ 50 MG TAB.ER.24H PO SCH (08:14)
[2016-09-11] MEDS: *HR* Warfarin 2 MG TABLET PO SCH (17:13)
[2016-09-12] MEDS: Insulin LISPRO 300 UNITS/3 ML VIAL SQ SCH ×4 (07:34→21:58)
[2016-09-12] MEDS: Lisinopril 20 MG TABLET PO SCH (07:49)
[2016-09-12] MEDS: Metoprolol XL (24 HR) Succ 50 MG TAB.ER.24H PO SCH (07:49)
[2016-09-12] MEDS: Aspirin 81 MG TAB.CHEW PO SCH (07:49)
[2016-09-12] MEDS: Magnesium Oxide 400 MG TABLET PO SCH ×3 (07:51→17:26)
[2016-09-12] MEDS ORDERED: Ascorbic Acid 500 MG TABLET PO SCH (09:00)
--- NOTE | 2016-09-12 12:35 | Internal Med Progress Note ---
Date of Encounter: 09/12/16 Time of Encounter: 12:25 - Assessment and plan (1) Weakness Current Visit: No Status: Acute Assessment and plan: September 08. Continue PT and OT intervention. (2) Atrial fibrillation Current Visit: No Status: Chronic Assessment and plan: September 08. Echocardiogram done 07/16/2015 showed LVEF of 50-55%. There is no significant valvular dysfunction. Left atrial size was normal at 2.9 cm. Continue Coumadin September 10. Continue Coumadin. Will change from atenolol to Toprol-XL to better control blood pressure and heart rate September 12. Continue Coumadin and Toprol. Qualifiers: Atrial fibrillation type: chronic Qualified Code(s): I48.2 - Chronic atrial fibrillation (3) Anemia Current Visit: No Status: Chronic Assessment and plan: September 08. Continue ferrous sulfate and vitamin C. Anemia testing done 2016September 10. We will recheck CBC and other labs in a.m. September 12. Hemoglobin is normal at 11.5. Continue present treatment Qualifiers: Anemia type: iron deficiency Iron deficiency anemia type: unspecified iron deficiency Qualified Code(s): D50.9 - Iron deficiency anemia, unspecified (4) DM type 2 (diabetes mellitus, type 2) Current Visit: No Status: Chronic Assessment and plan: September 08. Hemoglobin A1c was 6.4%. Accu-Cheks are acceptable. She remains diet controlled. Qualifiers: Diabetes mellitus complication status: with unspecified complications Diabetes mellitus marine oil terminal superintendent insulin use: without marine oil terminal superintendent use Qualified Code( s): E11.8 - Type 2 diabetes mellitus with unspecified complications (5) Hypomagnesemia Current Visit: No Status: Acute Assessment and plan: September 08. Continue magnesium supplementation and recheck labs in a.m. September 10. Magnesium level remains low at 1.2. We will increase magnesium oxide to t.i.d. September 12. Magnesium has improved to 1.4. Continue present dose of magnesium oxide. (6) Urinary retention Current Visit: Yes Status: Acute Assessment and plan: September 08. Will start Urecholine September 10. Continue Urecholine September 12. Will discontinue Kasper catheter and see if she is able to void. - Subjective Interval history: September 08. She was hospitalized in acute care September 02- after presenting to ER with weakness. It was initially felt she possibly had UTI but urine culture was negative and antibiotics were not continued. She was also treated for anemia, hypokalemia, and hypomagnesemia. She was discharged to swing bed for ongoing rehabilitation therapy prior to discharge home. She is sitting in a chair at present and has no new complaints. September 10. She has no new complaints. September 12. She has no new complaints and states she feels stronger. - Constitutional Vitals: Temp Pulse Resp BP Pulse Ox 97.5 F L 90 18 111/74 93 09/11/16 18:54 09/12/16 09:00 09/12/16 09:00 09/12/16 09:00 09/12/16 09:00 Exam: He is sitting in a chair and appears comfortable. Her affect is bright and cheerful. Heart is irregularly irregular. Lungs are clear. Extremities show no edema. She is wearing NANCY hose. I reviewed her medications and lab results. Internal Medicine: Result - Labs CBC & Chem 7: 09/11/16 05:30 09/11/16 05:30 - ABG Interpretation ABG results: PT/INR, D-dimer PT 14.6 Seconds (9.4-12.1) H 09/11/16 05:30 - VTE Documentation of Mechanical Device: Graduated compression elastic hosiery Consult Discharge Plan - Plan Referrals: Darius Oscar MD [Primary Care Provider] - 1 week
[2016-09-12] MEDS: *HR* Warfarin 2 MG TABLET PO SCH (17:26)
[2016-09-13] MEDS ORDERED: Preparation H Ointment 30 GM TUBE RC PRN (02:28)
[2016-09-13 05:43] LABS: Basophils # 0.1 K/mcL (0.0-0.2); Basophils % 0.6 %; Eosinophils # 0.4 K/mcL (0.0-0.6); Eosinophils % 2.3 %; Hemoglobin 11.8 g/dL (11.5-15.4); Immature Granulocytes % 1.1 % (0-4); Lymphocytes # 3.5 K/mcL (0.6-4.6); Lymphocytes % 20.6 %; Mean Corpuscular HGB Conc 31.1 g/dL (31.6-35.5); Mean Corpuscular Hemoglobin 26.9 pg (28.0-33.3); Mean Corpuscular Volume 86.6 fL (83.0-100.0); Mean Platelet Volume 10.3 fL (9.4-12.4); Monocytes # 1.3 K/mcL (0.0-1.3); Monocytes % 7.7 %; Platelet Count 705 K/mcL (140-400); Red Blood Count 4.39 M/mcL (3.82-4.97); Segmented Neutrophils % 67.7 %
[2016-09-13 06:01] LABS: Calcium 9.4 mg/dL (8.6-10.8); Magnesium 1.9 mg/dL (1.6-2.6); Potassium 4.9 mEq/L (3.5-4.5)
[2016-09-13 06:47] LABS: Neutrophils # 11.4 K/mcL (1.6-8.9)
[2016-09-13 07:13] LABS: INR 1.1
[2016-09-13] MEDS: Insulin LISPRO 300 UNITS/3 ML VIAL SQ SCH ×4 (07:44→21:51)
[2016-09-13] MEDS: Metoprolol XL (24 HR) Succ 50 MG TAB.ER.24H PO SCH (09:51)
[2016-09-13] MEDS: Lisinopril 20 MG TABLET PO SCH (09:51)
[2016-09-13] MEDS: Aspirin 81 MG TAB.CHEW PO SCH (09:52)
[2016-09-13] MEDS: Magnesium Oxide 400 MG TABLET PO SCH ×2 (09:58→14:54)
[2016-09-13] MEDS: Ascorbic Acid 500 MG TABLET PO SCH (09:59)
--- NOTE | 2016-09-13 15:42 | Internal Med Progress Note ---
Date of Encounter: 09/13/16 Time of Encounter: 15:25 - Assessment and plan (1) Weakness Current Visit: No Status: Acute Assessment and plan: September 08. Continue PT and OT intervention. September 13. Continue therapy intervention. Anticipate discharge home September 15. (2) Atrial fibrillation Current Visit: No Status: Chronic Assessment and plan: September 08. Echocardiogram done 07/16/2015 showed LVEF of 50-55%. There is no significant valvular dysfunction. Left atrial size was normal at 2.9 cm. Continue Coumadin September 10. Continue Coumadin. Will change from atenolol to Toprol-XL to better control blood pressure and heart rate September 12. Continue Coumadin and Toprol. Qualifiers: Atrial fibrillation type: chronic Qualified Code(s): I48.2 - Chronic atrial fibrillation (3) Anemia Current Visit: No Status: Chronic Assessment and plan: September 08. Continue ferrous sulfate and vitamin C. Anemia testing done 2016September 10. We will recheck CBC and other labs in a.m. September 12. Hemoglobin is normal at 11.5. Continue present treatment September 13. Hemoglobin improved to 11.8. Qualifiers: Anemia type: iron deficiency Iron deficiency anemia type: unspecified iron deficiency Qualified Code(s): D50.9 - Iron deficiency anemia, unspecified (4) DM type 2 (diabetes mellitus, type 2) Current Visit: No Status: Chronic Assessment and plan: September 08. Hemoglobin A1c was 6.4%. Accu-Cheks are acceptable. She remains diet controlled. Qualifiers: Diabetes mellitus complication status: with unspecified complications Diabetes mellitus vermin exterminator insulin use: without [facility] use Qualified Code( s): E11.8 - Type 2 diabetes mellitus with unspecified complications (5) Hypomagnesemia Current Visit: No Status: Acute Assessment and plan: September 08. Continue magnesium supplementation and recheck labs in a.m. September 10. Magnesium level remains low at 1.2. We will increase magnesium oxide to t.i.d. September 12. Magnesium has improved to 1.4. Continue present dose of magnesium oxide. September 13. Magnesium level normal at 1.9. We will reduce dose of magnesium oxide. (6) Urinary retention Current Visit: Yes Status: Acute Assessment and plan: September 08. Will start Urecholine September 10. Continue Urecholine September 12. Will discontinue Kasper catheter and see if she is able to void. - Subjective Interval history: September 08. She was hospitalized in acute care September 02- after presenting to ER with weakness. It was initially felt she possibly had UTI but urine culture was negative and antibiotics were not continued. She was also treated for anemia, hypokalemia, and hypomagnesemia. She was discharged to swing bed for ongoing rehabilitation therapy prior to discharge home. She is sitting in a chair at present and has no new complaints. September 10. She has no new complaints. September 12. She has no new complaints and states she feels stronger. September 13. She has no new complaints. - Constitutional Vitals: Temp Pulse Resp BP Pulse Ox 98.1 F 84 18 101/61 94 09/13/16 06:36 09/13/16 06:36 09/13/16 06:36 09/13/16 06:36 09/13/16 07:00 Exam: She is resting comfortably in bed and appears in no acute distress. Extremities show no edema. Lungs are clear anteriorly. Heart is regular without murmurs gallops or ectopics. Internal Medicine: Result - Labs CBC & Chem 7: 09/13/16 04:10 09/13/16 04:10 Labs: Short CBC 09/13/16 Range/Units 04:10 WBC 16.9 H (4.3-11.1) K/mcL Hgb 11.8 (11.5-15.4) g/dL Hct 38.0 (35.3-44.9) % Plt Count 705 H (140-400) K/mcL Neutrophils # 11.4 H (1.6-8.9) K/mcL BMP 09/13/16 04:10 Sodium 134 L Potassium 4.9 H Chloride 97 L Carbon Dioxide 21 BUN 29 H D Creatinine 1.07 Glucose 148 H Calcium 9.4 - ABG Interpretation ABG results: PT/INR, D-dimer PT 12.0 Seconds (9.4-12.1) 09/13/16 04:10 - VTE Documentation of Mechanical Device: Graduated compression elastic hosiery Consult Discharge Plan - Plan Referrals: Darius Oscar MD [Primary Care Provider] - 1 week
[2016-09-13] MEDS: *HR* Warfarin 2 MG TABLET PO SCH (17:34)
[2016-09-14] MEDS: Lisinopril 20 MG TABLET PO SCH (08:43)
[2016-09-14] MEDS: Aspirin 81 MG TAB.CHEW PO SCH (08:52)
[2016-09-14] MEDS: Ascorbic Acid 500 MG TABLET PO SCH (08:52)
[2016-09-14] MEDS: Magnesium Oxide 400 MG TABLET PO SCH (08:53)
[2016-09-14] MEDS: Insulin LISPRO 300 UNITS/3 ML VIAL SQ SCH ×4 (08:54→22:48)
[2016-09-14] MEDS: Metoprolol XL (24 HR) Succ 50 MG TAB.ER.24H PO SCH (08:58)
[2016-09-14] MEDS: *HR* Warfarin 2 MG TABLET PO SCH (17:10)
[2016-09-15] MEDS: Ascorbic Acid 500 MG TABLET PO SCH (06:33)
[2016-09-15 07:03] VITALS: BP 104/65
[2016-09-15] MEDS: Insulin LISPRO 300 UNITS/3 ML VIAL SQ SCH ×2 (07:07→12:02)
[2016-09-15] MEDS: Metoprolol XL (24 HR) Succ 50 MG TAB.ER.24H PO SCH (08:08)
[2016-09-15] MEDS: Magnesium Oxide 400 MG TABLET PO SCH (08:09)
[2016-09-15] MEDS: Aspirin 81 MG TAB.CHEW PO SCH (08:09)
[2016-09-15] MEDS: Lisinopril 20 MG TABLET PO SCH (08:10)
--- NOTE | 2016-09-15 10:52 | Discharge Summary ---
Date of Encounter: 09/15/16 Time of Encounter: 10:35 - Discharge Diagnosis (1) Weakness Priority: Primary Status: Acute (2) Atrial fibrillation Priority: Secondary Status: Chronic Qualifiers: Atrial fibrillation type: chronic Qualified Code(s): I48.2 - Chronic atrial fibrillation (3) Anemia Priority: Secondary Status: Chronic Qualifiers: Anemia type: iron deficiency Iron deficiency anemia type: unspecified iron deficiency Qualified Code(s): D50.9 - Iron deficiency anemia, unspecified (4) DM type 2 (diabetes mellitus, type 2) Priority: Secondary Status: Chronic Qualifiers: Diabetes mellitus complication status: with unspecified complications Diabetes mellitus oysterman insulin use: without [facility] use Qualified Code( s): E11.8 - Type 2 diabetes mellitus with unspecified complications (5) Hypomagnesemia Priority: Secondary Status: Acute (6) Urinary retention Priority: Secondary Status: Chronic - Discharge Medications Prescriptions: Ascorbic Acid [Vitamin C] 500 mg PO DAILY #30 tablet Bethanechol [Urecholine] 25 mg PO TID #90 tablet Ferrous Sulfate 325 mg PO DAILY #30 tablet Lisinopril [Zestril] 20 mg PO DAILY #30 tablet Metoprolol XL (24 HR) Succ [Toprol Xl] 50 mg PO DAILY #30 tab.er.24h Warfarin [Coumadin] 3 mg PO 1800 #45 tablet Home Medications: Amitriptyline [Elavil] 25 mg PO HS 09/02/16 [History] Aspirin 81 mg PO DAILY 09/02/16 [History] Atorvastatin [Lipitor] 40 mg PO HS 09/02/16 [History] LORazepam [Ativan] 0.5 mg PO HS 09/02/16 [History] Levothyroxine [Synthroid] 150 mcg PO DAILY 09/02/16 [History] Memantine HCl 10 mg PO DAILY #0 09/06/16 [Rx] Ascorbic Acid [Vitamin C] 500 mg PO DAILY #30 tablet 09/15/16 [Rx] Bethanechol [Urecholine] 25 mg PO TID #90 tablet 09/15/16 [Rx] Ferrous Sulfate 325 mg PO DAILY #30 tablet 09/15/16 [Rx] Lisinopril [Zestril] 20 mg PO DAILY #30 tablet 09/15/16 [Rx] Magnesium Oxide [Mag-Ox] 400 mg PO DAILY #0 tablet 09/15/16 [Rx] Metoprolol XL (24 HR) Succ [Toprol Xl] 50 mg PO DAILY #30 tab.er.24h 09/15/16 [ Rx] Warfarin [Coumadin] 3 mg PO 1800 #45 tablet 09/15/16 [Rx] Allergies/Adverse Reactions: Allergies No Known Allergies Allergy (Verified 09/02/16 14:12) Date of admission: 09/06/16 14:58 Primary care physician: Darius Oscar MD Consults: 09/06/16 15:18 Consult to Occupational Therapy [CONS] Routine Comment: Plan, develop, and implement POC. Consult to Physical Therapy [CONS] Routine Comment: evaluate, plan, and implement POC. Consult to Payroll Representative [CONS] Routine Reason for SW Consult: discharge planning. - Patient Status Disposition: Home, Self-Care Functional capacity at discharge: uses cane/walker Overall status at discharge: patient is progressing back to baseline - Discharge Instructions Follow Up With: Darius Oscar MD [Primary Care Provider] - 1 week - Diet and Activity Activity: as per physical therapy Diet: diabetic diet Hospital course: Ms. Maradiaga is a 80 year old female who was hospitalized in acute care September 02- after presenting to ER with weakness. It was initially felt she possibly had UTI but urine culture was negative and antibiotics were not continued. She was also treated for anemia, hypokalemia, and hypomagnesemia. She was discharged to swing bed for ongoing rehabilitation therapy prior to discharge home. She continued with physical therapy and occupational therapy during swing bed stay. She made satisfactory progress. She was stable for discharge home on September 15. She continued on Coumadin. Her dose was increased to 3 mg daily because her PT/ INR was subtherapeutic. Her PCP can monitor this. She was changed from atenolol to Toprol-XL to better control blood pressure and heart rate and this will be continued at discharge. She continued ferrous sulfate and vitamin C in swing bed and these will be continued upon discharge. Her magnesium level was normal at 1.9 on September 13. She will continue a dose of magnesium oxide 400 mg daily. Two attempts were made to discontinue the Kasper catheter during swing bed stay after Urecholine was started. She had urinary retention so the Kasper catheter was reinserted and will remain at discharge. She will follow with her PCP Dr. Darius Oscar within 1 week. - Time Spent with Patient Total time spent providing and/or coordinating discharge services: - Constitutional Vitals: Temp Pulse Resp BP Pulse Ox 98.1 F 86 17 104/65 92 09/15/16 06:57 09/15/16 06:57 09/15/16 06:57 09/15/16 06:57 09/15/16 07:00 - VTE Documentation of Mechanical Device: Graduated compression elastic hosiery
== END 2016-09-15 13:25 | disposition home or self-care (01) | DRG 946 ==
LOC: INPPIK 14:58
PROVIDERS: ADMIT Internal Medicine; ATTEND Internal Medicine

== ENCOUNTER 2017-07-10 15:32 | Observation (INO) ==
--- NOTE | 2017-07-10 15:37 | Emergency Department Note ---
Disposition Clinical Impression: Weakness generalized Urinary tract infection Qualifiers: Urinary tract infection type: acute cystitis Hematuria presence: without hematuria Qualified Code(s): N30.00 - Acute cystitis without hematuria Disposition: Admitted As Inpatient Condition: Good Referrals: Horace Dejesus MD [Primary Care Provider] - Forms: ED Satisfaction Letter Weakness HPI - General Chief complaint: ED Urogenital-Female Stated complaint: Possible UTI with onset today Time Seen by Provider: 07/10/17 15:34 Source: patient, EMS Mode of arrival: EMS Limitations: altered mental status (Dementia) Nursing Notes Reviewed: Yes Vital Signs Reviewed: Yes - History of Present Illness HPI Narrative: Patient reportedly has had some generalized weakness and complained of some leg pains. Family was concerned that she has had this trouble before she had a urinary tract infection and called the squad to have her brought in for evaluation. They did report to EMS that she has been eating and drinking well. They did not identify any other physical complaints. Patient arrives stating that she "feels pretty good". When asked specifically she does state the pain in her legs is "above the knees" bilaterally. She has not had any type of fall or injury nor any localized numbness, tingling or weakness. She has not been having chest pain, cough or shortness of breath. She has abdominal pain, vomiting, diarrhea. She denies any urinary frequency or dysuria and does wear attends. She did stand to transfer for EMS. Pt Subjective Complaint: generalized weakness/fatigue, other (Leg pains) Onset (ago): hour(s) Duration: intermittent, gradually worsening Location: LLE, RLE Migration: none Pain Severity: mild, moderate Improves with: none Worsens with: other (Standing and walking) Context: history of similar Associated symptoms: Reports: confusion (Chronic dementia). Denies: chest pain , dark stools, diaphoresis, dysuria, easy bruising, fever/chills, headaches, loss of appetite, nausea/vomiting, myalgias, rash, shortness of breath, syncope - Related Data Home Medications Medication Instructions Recorded Confirmed Amitriptyline [Elavil] 50 mg PO HS 09/02/16 07/10/17 Atorvastatin [Lipitor] 40 mg PO HS 09/02/16 07/10/17 LORazepam [Ativan] 0.5 mg PO HS 09/02/16 07/10/17 Levothyroxine [Synthroid] 100 mcg PO DAILY 09/02/16 07/10/17 Warfarin [Coumadin] 7.5 mg PO 1800 02/03/17 07/10/17 Amitriptyline [Elavil] 50 mg PO HS 05/15/17 07/10/17 Clopidogrel [Plavix] 75 mg PO DAILY 05/15/17 07/10/17 Multivit-Min/FA/Lycopen/Lutein 1 each PO DAILY 05/15/17 07/10/17 [Centrum Silver Tablet] Sertraline [Zoloft] 100 mg PO DAILY 05/15/17 07/10/17 Memantine HCl 5 mg PO DAILY 07/10/17 07/10/17 Previous Rx's Medication Instructions Recorded Ascorbic Acid [Vitamin C] 500 mg PO DAILY #30 tablet 09/15/16 Lisinopril [Zestril] 20 mg PO DAILY #30 tablet 09/15/16 Metoprolol XL (24 HR) Succ [Toprol 50 mg PO DAILY #30 tab.er.24h 09/15/16 Xl] Allergies Allergy/AdvReac Type Severity Reaction Status Date / Time captopril [From Capoten] Allergy Itching Verified 07/10/17 15:44 nitrofurantoin Allergy Itching Verified 07/10/17 15:44 [From Macrobid] All systems ED: reviewed and negative except as stated. Past Medical History - Past Medical History Attestation: Yes The following information was validated with the patient. Source: patient, old records reviewed, obtained from family, nursing notes reviewed Medical history: Reports: arthritis, atrial fibrillation, cancer, CVA, dementia , diabetes, GERD, hyperlipidemia, hypertension, malignancy, migraine, myocardial infarction, thyroid disease, syncope, TIA Surgical history: Reports: appendectomy, cholecystectomy Psychiatric history: Reports: anxiety, depression COMPENSATION COORDINATOR history: Reports: no COMPENSATION COORDINATOR history - Social History Smoking Status: Former smoker Smokeless Tobacco Status: No Alcohol use: Reports: none Drug use: Reports: none Physical Exam - General Limitations: no limitations General appearance: alert, in no apparent distress - Head Head exam: atraumatic, normocephalic, normal inspection - Eye Eye exam: Present: normal appearance, PERRL, EOMI. Absent: scleral icterus, conjunctival injection - ENT ENT exam: normal exam, normal oropharynx, mucous membranes moist - Neck Neck exam: Present: normal inspection, full ROM, trachea midline - Chest Chest inspection: Present: normal inspection, symmetric chest wall rise - Respiratory Respiratory exam: Present: normal lung sounds bilaterally. Absent: respiratory distress, wheezes, prolonged expiratory phase - Cardiovascular Cardiovascular exam: Present: regular rate, normal rhythm, normal heart sounds. Absent: tachycardia - Abdominal Exam Abdominal exam: Present: soft, Non-Tender, normal bowel sounds. Absent: tenderness, distention, guarding, rebound, rigidity - Extremities Exam Extremities exam: Present: normal inspection, full ROM, normal capillary refill. Absent: tenderness, pedal edema - Expanded Lower Extremity Exam Neurovascular/Tendon exam: Present: normal capillary refill. Absent: motor deficit, sensory deficit, tendon deficit Gait: not tested/not observed - Back Exam Back exam: Present: normal inspection, full ROM. Absent: tenderness - Neurological Exam Neurological exam: Present: alert. Absent: oriented X3, motor sensory deficit - Psychiatric Psychiatric exam: Present: normal affect, normal mood - Skin Skin exam: Present: warm, dry, intact, normal color. Absent: rash, cyanosis, diaphoresis, pallor Course Course Narrative: 1625: Results of the discussed with the patient and family. They're concerned that the family and cement despatch operator have been having too hard time getting her up to move her around at this time. They feel she will need observation here until she is doing a little better. She has been written to receive an IV fluid bolus and some IV Rocephin. A page has been placed to Dr. Merchant to discuss inpatient observation care. 1640: Care has been discussed with Dr. Merchant is agreeable with inpatient observation. Verbal orders have been obtained. Vital Signs Temperature 98 F 07/10/17 15:50 Pulse Rate 79 07/10/17 15:50 Respiratory Rate 16 07/10/17 15:50 Blood Pressure 79/50 07/10/17 15:50 O2 Sat by Pulse Oximetry 93 07/10/17 15:50 Temperature 98 F 07/10/17 15:50 Pulse Rate 67 07/10/17 16:25 Respiratory Rate 16 07/10/17 16:25 Blood Pressure 91/47 07/10/17 16:25 O2 Sat by Pulse Oximetry 93 07/10/17 16:25 Oxygen Delivery Oxygen Delivery Room Air Weakness - Differential Diagnosis Differential Diagnosis: Likely: anemia, hypoglycemia, sepsis/infection, dehydration, medication effect, metabolic - Medical Records Medical records reviewed: Yes I reviewed the patient's medical records. - Lab Data Lab results reviewed: Yes I reviewed the patient's lab results. Result diagrams: 07/10/17 15:47 07/10/17 15:47 Lab Results 07/10/17 07/10/17 07/10/17 Range/Units 15:47 15:47 15:47 WBC 11.5 H (4.3-11.1) K/mcL RBC 4.05 (3.82-4.97) M/mcL Hgb 10.6 L (11.5-15.4) g/dL Hct 34.3 L (35.3-44.9) % MCV 84.7 (83.0-100.0) fL MCH 26.2 L (28.0-33.3) pg MCHC 30.9 L (31.6-35.5) g/dL RDW 18.0 H (11.5-14.5) % Plt Count 381 (140-400) K/mcL MPV 10.1 (9.4-12.4) fL Immature Gran % 0.4 (0-4) % Seg Neutrophils % 69.6 % Lymphocytes % 18.3 % Monocytes % 7.6 % Eosinophils % 3.7 % Basophils % 0.4 % Neutrophils # 8.0 (1.6-8.9) K/mcL Lymphocytes # 2.1 (0.6-4.6) K/mcL Monocytes # 0.9 (0.0-1.3) K/mcL Eosinophils # 0.4 (0.0-0.6) K/mcL Basophils # 0.1 (0.0-0.2) K/mcL PT 20.4 H (9.4-12.1) Seconds INR 1.9 Sodium 141 (136-145) mEq/L Potassium 3.8 (3.5-5.1) mEq/L Chloride 104 (98-107) mEq/L Carbon Dioxide 29 (23-29) mEq/L BUN 29 H (8-23) mg/dL Creatinine 1.03 (0.60-1.20) mg/dL Est GFR ( Amer) > 60 (> 60) Est GFR (Non-Af Amer) 51 L (> 60) BUN/Creatinine Ratio 28 H (6-26) Glucose 148 H (70-105) mg/dL Calculated Osmolality 301 H (280-300) Calcium 9.1 (8.6-10.3) mg/dL Urine Color (Yellow) Urine Clarity (Clear) Urine pH (5.0-8.0) pH Units Ur Specific [place] (1.010-1.025) Urine Protein (Neg-Trace) mg/dL Urine Glucose (UA) (Normal) mg/dL Urine Ketones (Negative) mg/dL Urine Blood (Negative) Urine Nitrite (Negative) Urine Bilirubin (Negative) Urine Urobilinogen (Normal) mg/dL Ur Leukocyte Esterase (Negative) Urine Microscopic WBC (0-3) per hpf Ur Squamous Epith Cells (None-Few) per lpf Urine Bacteria (None-Few) per hpf Ur Culture Indicated? (NO) 07/10/17 Range/Units 16:00 WBC (4.3-11.1) K/mcL RBC (3.82-4.97) M/mcL Hgb (11.5-15.4) g/dL Hct (35.3-44.9) % MCV (83.0-100.0) fL MCH (28.0-33.3) pg MCHC (31.6-35.5) g/dL RDW (11.5-14.5) % Plt Count (140-400) K/mcL MPV (9.4-12.4) fL Immature Gran % (0-4) % Seg Neutrophils % % Lymphocytes % % Monocytes % % Eosinophils % % Basophils % % Neutrophils # (1.6-8.9) K/mcL Lymphocytes # (0.6-4.6) K/mcL Monocytes # (0.0-1.3) K/mcL Eosinophils # (0.0-0.6) K/mcL Basophils # (0.0-0.2) K/mcL PT (9.4-12.1) Seconds INR Sodium (136-145) mEq/L Potassium (3.5-5.1) mEq/L Chloride (98-107) mEq/L Carbon Dioxide (23-29) mEq/L BUN (8-23) mg/dL Creatinine (0.60-1.20) mg/dL Est GFR ( Amer) (> 60) Est GFR (Non-Af Amer) (> 60) BUN/Creatinine Ratio (6-26) Glucose (70-105) mg/dL Calculated Osmolality (280-300) Calcium (8.6-10.3) mg/dL Urine Color Yellow (Yellow) Urine Clarity Cloudy A (Clear) Urine pH 7.0 (5.0-8.0) pH Units Ur Specific [place] 1.020 (1.010-1.025) Urine Protein 30 H (Neg-Trace) mg/dL Urine Glucose (UA) Normal (Normal) mg/dL Urine Ketones Negative (Negative) mg/dL Urine Blood Negative (Negative) Urine Nitrite Negative (Negative) Urine Bilirubin Negative (Negative) Urine Urobilinogen Normal (Normal) mg/dL Ur Leukocyte Esterase Small H (Negative) Urine Microscopic WBC 5-15 H (0-3) per hpf Ur Squamous Epith Cells Few (None-Few) per lpf Urine Bacteria Many H (None-Few) per hpf Ur Culture Indicated? YES A (NO)
[2017-07-10 15:52] LABS: Basophils # 0.1 K/mcL (0.0-0.2); Basophils % 0.4 %; Eosinophils # 0.4 K/mcL (0.0-0.6); Eosinophils % 3.7 %; Hematocrit 34.3 % (35.3-44.9); Hemoglobin 10.6 g/dL (11.5-15.4); Immature Granulocytes % 0.4 % (0-4); Lymphocytes # 2.1 K/mcL (0.6-4.6); Lymphocytes % 18.3 %; Mean Corpuscular HGB Conc 30.9 g/dL (31.6-35.5); Mean Corpuscular Hemoglobin 26.2 pg (28.0-33.3); Mean Corpuscular Volume 84.7 fL (83.0-100.0); Mean Platelet Volume 10.1 fL (9.4-12.4); Monocytes # 0.9 K/mcL (0.0-1.3); Monocytes % 7.6 %; Platelet Count 381 K/mcL (140-400); Red Blood Count 4.05 M/mcL (3.82-4.97); Segmented Neutrophils % 69.6 %
[2017-07-10 15:59] LABS: INR 1.9; Prothrombin Time 20.4 Seconds (9.4-12.1)
[2017-07-10 16:07] LABS: BUN/Creatinine Ratio 28 (6-26); Blood Urea Nitrogen 29 mg/dL (8-23); Calcium 9.1 mg/dL (8.6-10.3); Carbon Dioxide 29 mEq/L (23-29); Chloride 104 mEq/L (98-107); Glucose 148 mg/dL (70-105); Osmolality,Calculated 301 (280-300); Potassium 3.8 mEq/L (3.5-5.1); Sodium 141 mEq/L (136-145); eGFR For Non-African Americans 51 (> 60)
[2017-07-10 16:08] LABS: Bilirubin,Urine Negative (Negative); Blood,Urine Negative (Negative); Clarity,Urine Cloudy (Clear); Color,Urine Yellow (Yellow); Glucose,Urine (UA) Normal (Normal); Ketones,Urine Negative (Negative); Leukocyte Esterase,Urine Small (Negative); Nitrite,Urine Negative (Negative); Protein,Urine 30 mg/dL (Neg-Trace); Urobilinogen,Urine Normal (Normal)
[2017-07-10 16:15] LABS: Bacteria,Urine Many per hpf (None-Few); Squamous Epithelial Cell,Urine Few per lpf (None-Few)
[2017-07-10] MEDS ORDERED: 0.9 % Sodium Chloride 500 ML IVC ONE (16:25)
[2017-07-10] MEDS ORDERED: cefTRIAXone 1,000 MG in Water for inj. (sterile) 10 ML IVP ONE (16:25)
[2017-07-10] MEDS ORDERED: 0.9 % Sodium Chloride 1,000 ML IVC SCH (16:30)
[2017-07-10] MEDS ORDERED: D5% in Water 1,000 ML IVC PRN (17:39)
[2017-07-10] MEDS ORDERED: Naloxone 0.4 MG/ML INJ IVP PRN (17:39)
[2017-07-10] MEDS ORDERED: Dextrose Gel 15 GM/37.5 ML TUBE PO PRN ×2 (17:39)
[2017-07-10] MEDS ORDERED: *HR* Dextrose 50 % in Water (Syg) 50 ML SYRINGE IVP PRN (17:39)
[2017-07-10] MEDS: 0.9 % Sodium Chloride 1,000 ML IVC SCH (18:13)
[2017-07-10] MEDS: *HR* Warfarin 5 MG TABLET PO SCH (18:13)
[2017-07-10] MEDS: *HR* LORazepam 0.5 MG TABLET PO SCH (20:13)
[2017-07-11] MEDS: 0.9 % Sodium Chloride 1,000 ML IVC SCH (04:19)
[2017-07-11] MEDS: Ascorbic Acid 500 MG TABLET PO SCH (06:33)
[2017-07-11] MEDS: Multivit/Ca/Min/Fe/FA 1 TAB TABLET PO SCH (09:18)
[2017-07-11] MEDS: Metoprolol XL (24 HR) Succ 50 MG TAB.ER.24H PO SCH (09:18)
[2017-07-11] MEDS: Lisinopril 20 MG TABLET PO SCH (09:18)
[2017-07-11] MEDS: Insulin LISPRO 300 UNITS/3 ML VIAL SQ SCH ×3 (09:23→16:25)
--- NOTE | 2017-07-11 12:42 | Internal Med History&Physical ---
Date of Encounter: 07/11/17 Time of Encounter: 12:15 Assessment and Plan (1) Urinary tract infection Current visit: Yes Status: Acute She has been started empirically on Rocephin. I will add lactobacillus. Qualifiers: Urinary tract infection type: acute cystitis Hematuria presence: without hematuria Qualified Code(s): N30.00 - Acute cystitis without hematuria (2) Azotemia Current visit: Yes Status: Acute We will give IV fluids and monitor renal indices. (3) Aspiration into airway Current visit: Yes Status: Acute She reports she occasionally chokes and coughs while eating. I will order swallowing evaluation. Qualifiers: Encounter type: initial encounter Qualified Code(s): T17.908A - Unspecified foreign body in respiratory tract, part unspecified causing other injury, initial encounter (4) Atrial fibrillation Current visit: No Status: Chronic Continue Coumadin. Pro time was near therapeutic level on admission. Qualifiers: Atrial fibrillation type: chronic Qualified Code(s): I48.2 - Chronic atrial fibrillation (5) HTN (hypertension) Current visit: No Status: Chronic Continue Toprol and lisinopril. Qualifiers: Hypertension type: essential hypertension Qualified Code(s): I10 - Essential (primary) hypertension (6) Anemia Current visit: No Status: Chronic We will order anemia testing in a.m. Qualifiers: Anemia type: iron deficiency Iron deficiency anemia type: unspecified iron deficiency Qualified Code(s): D50.9 - Iron deficiency anemia, unspecified (7) DM type 2 (diabetes mellitus, type 2) Current visit: No Status: Chronic We will order hemoglobin A1c in a.m. Qualifiers: Diabetes mellitus complication status: with unspecified complications Diabetes mellitus local company intermodal truck driver insulin use: without assisted use Qualified Code( s): E11.8 - Type 2 diabetes mellitus with unspecified complications (8) Hypomagnesemia Current visit: No Status: Acute We will check magnesium level in a.m. Internal Medicine - H&P: HPI Chief complaint: Weakness Admitted From: Emergency Dept Plans for Post Hospital Care: Home History of present illness: Ms. Maradiaga is a 81 year old female who was brought to emergency room after family reported she had generalized weakness and some leg pains. They reported she had not been taking in food and fluids adequately. She was evaluated in emergency room and found to have mild azotemia, possible UTI, anemia, and minimal leukocytosis and no left shift. She was admitted to [facility] floor for ongoing care needs. She is a fair historian at best and does not remember details about coming to the emergency room. Past Med Surg Social Fam HX - Past Medical History Medical history: arthritis, atrial fibrillation, cancer, CVA, dementia, diabetes , GERD, hyperlipidemia, hypertension, malignancy, migraine, myocardial infarction, thyroid disease, syncope, TIA Psychiatric history: anxiety, depression - Past Surgical History Surgical History: appendectomy, cholecystectomy - Social History Smoking Status: Former smoker Smokeless Tobacco Status: No Alcohol use: none Drug use: none - Family History Daughter Adopted: No Living Status: Still Living Hx Family Cancer: Yes (cervical) Hx Family Endocrine Disorder: Yes (diabetes mellitus) Internal Medicine - H&P: Meds Amitriptyline [Elavil] 50 mg PO HS 09/02/16 [History] Atorvastatin [Lipitor] 40 mg PO HS 09/02/16 [History] LORazepam [Ativan] 0.5 mg PO HS 09/02/16 [History] Levothyroxine [Synthroid] 100 mcg PO DAILY 09/02/16 [History] Ascorbic Acid [Vitamin C] 500 mg PO DAILY #30 tablet 09/15/16 [Rx] Lisinopril [Zestril] 20 mg PO DAILY #30 tablet 09/15/16 [Rx] Metoprolol XL (24 HR) Succ [Toprol Xl] 50 mg PO DAILY #30 tab.er.24h 09/15/16 [ Rx] Warfarin [Coumadin] 7.5 mg PO 1800 02/03/17 [History] Amitriptyline [Elavil] 50 mg PO HS 05/15/17 [History] Clopidogrel [Plavix] 75 mg PO DAILY 05/15/17 [History] Multivit-Min/FA/Lycopen/Lutein [Centrum Silver Tablet] 1 each PO DAILY 05/15/17 [History] Sertraline [Zoloft] 100 mg PO DAILY 05/15/17 [History] Memantine HCl 5 mg PO DAILY 07/10/17 [History] 3 Allergy/AdvReac Type Severity Reaction Status Date / Time captopril [From Capoten] Allergy Itching Verified 07/10/17 15:44 nitrofurantoin Allergy Itching Verified 07/10/17 15:44 [From Macrobid] All Systems PM: A 10-system review of systems was performed and is negative for pertinent findings except as documented above in the HPI. Review of systems: General: Her weight has decreased from 81.647 kg on 09/02/2016 to 72.575 kg on admission now Cardiovascular: She has history of hypertension and ASHD status post PR, date unknown. She has chronic atrial fibrillation. She states she had an exercise stress test and heart catheter several years ago. She reports a remote left leg DVT. Respiratory: She reports smoking from age [age] never reaching 2 packs per day. She denies chronic lung disease GI: She has had cholecystectomy. She has a diagnosis of GERD. She denies disorders of her liver or exocrine pancreas : She has had urinary retention in the past but denies other kidney or bladder disorders. Neurologic: She claims she has had multiple strokes in the past. Available records show a reported stroke in 2013 for which she received TPA and was transferred [facility]. She had no significant residual neurologic deficit. She reports she had seizures in the past but does not take seizure medication at this time. Endocrine: She has DM 2 duration unknown. Hemoglobin A1c was 6.4% on 2016. She has hypothyroidism and hyperlipidemia Hematology/oncology: She reports right breast cancer in the past but states she is now cancer free and claims a biopsy ( ? excisional) was done. She has a diagnosis of anemia and anemia testing September 2016 showing iron deficiency. She denies other internal malignancies Psychiatric: She has depression but denies anxiety or other mental health issues Musk skeletal: She has DJD but denies gout or other bone joint or muscle disorders. - Constitutional Vitals: Temp Pulse Resp BP Pulse Ox 98.2 F 88 18 137/75 94 07/11/17 10:28 07/11/17 10:28 07/11/17 10:28 07/11/17 10:28 07/11/17 10:28 Exam: Gen.: She is a well-developed well-nourished female resting comfortably in bed who appears in no acute distress HEENT: Head is atraumatic and normocephalic. Eyes: EOMI. There is no scleral icterus. Mouth: Mucosa is moist. Neck: Supple and nontender. There is no thyromegaly or adenopathy noted. Heart: Irregularly irregular without murmurs or gallops Lungs: No wheezes or crackles are heard. Abdomen: Soft and nontender. No masses or guarding are noted. Extremities: There is no cyanosis edema or clubbing noted. Dorsalis pedis and posttibial pulses are trace palpable bilaterally. Her feet are warm to touch. She has DJD changes of her hands. Neurologic: Mental status: She is talkative and a good historian. Cranial nerves: Smile is symmetric but there appears to be slight flattening of the left nasolabial fold at rest. Forehead wrinkles bilaterally. Tongue protrudes midline. EOMI. Motor: She has slight pronator drift on the left arm. Cerebellar: Finger to nose is intact bilaterally. Skin: Warm and dry Internal Med - H&P Results - Labs CBC & Chem 7: 07/10/17 15:47 07/10/17 15:47
[2017-07-11] MEDS: 0.45 % Sodium Chloride w/KCl 20 MEQ/1,000 ML MLS IVC SCH (13:46)
[2017-07-11] MEDS: cefTRIAXone 1,000 MG in Water for inj. (sterile) 20 ML 10 ML IVPB SCH (15:43)
[2017-07-11] MEDS: Acetaminophen 325 MG TABLET PO PRN (17:07)
[2017-07-11] MEDS: *HR* Warfarin 5 MG TABLET PO SCH (17:07)
[2017-07-11] MEDS: Lactobacillus 1 EACH CAP.SPRINK PO SCH (19:53)
[2017-07-11] MEDS: *HR* LORazepam 0.5 MG TABLET PO SCH (19:53)
[2017-07-12] MEDS: 0.45 % Sodium Chloride w/KCl 20 MEQ/1,000 ML MLS IVC SCH (05:32)
[2017-07-12] MEDS: Acetaminophen 325 MG TABLET PO PRN ×2 (05:32→16:15)
[2017-07-12 05:52] LABS: Basophils # 0.1 K/mcL (0.0-0.2); Basophils % 0.5 %; Eosinophils # 0.6 K/mcL (0.0-0.6); Eosinophils % 3.6 %; Hematocrit 34.6 % (35.3-44.9); Hemoglobin 10.3 g/dL (11.5-15.4); Immature Granulocytes % 0.5 % (0-4); Lymphocytes # 2.2 K/mcL (0.6-4.6); Lymphocytes % 13.7 %; Mean Corpuscular HGB Conc 29.8 g/dL (31.6-35.5); Mean Corpuscular Hemoglobin 25.8 pg (28.0-33.3); Mean Corpuscular Volume 86.7 fL (83.0-100.0); Mean Platelet Volume 10.4 fL (9.4-12.4); Monocytes # 1.1 K/mcL (0.0-1.3); Monocytes % 6.7 %; Neutrophils # 11.8 K/mcL (1.6-8.9); Platelet Count 364 K/mcL (140-400); Red Blood Count 3.99 M/mcL (3.82-4.97); Red Cell Distribution Width 18.1 % (11.5-14.5)
[2017-07-12 06:10] LABS: BUN/Creatinine Ratio 30 (6-26); Blood Urea Nitrogen 18 mg/dL (8-23); Calcium 8.8 mg/dL (8.6-10.3); Carbon Dioxide 27 mEq/L (23-29); Chloride 104 mEq/L (98-107); Glucose 88 mg/dL (70-105); Magnesium 1.3 mg/dL (1.6-2.6); Osmolality,Calculated 289 (280-300); Potassium 4.4 mEq/L (3.5-5.1); Sodium 139 mEq/L (136-145); eGFR For Non-African Americans > 60 (> 60)
[2017-07-12 06:23] LABS: Thyroid Stimulating Hormone 4.271 mcIU/mL (0.340-5.600)
[2017-07-12] MEDS: Metoprolol XL (24 HR) Succ 50 MG TAB.ER.24H PO SCH (08:19)
[2017-07-12] MEDS: Multivit/Ca/Min/Fe/FA 1 TAB TABLET PO SCH (08:19)
[2017-07-12] MEDS: Lactobacillus 1 EACH CAP.SPRINK PO SCH ×2 (08:19→19:42)
[2017-07-12] MEDS: Lisinopril 20 MG TABLET PO SCH (08:19)
[2017-07-12] MEDS: Ascorbic Acid 500 MG TABLET PO SCH (08:19)
[2017-07-12 09:03] LABS: Ferritin 283 ng/ml (10-120)
[2017-07-12 09:27] LABS: Hemoglobin A1C 6.2 %
[2017-07-12] MEDS ORDERED: 0.45 % Sodium Chloride w/KCl 20 MEQ/1,000 ML MLS IVC SCH (11:24)
--- NOTE | 2017-07-12 11:25 | Internal Med Progress Note ---
Date of Encounter: 07/12/17 Time of Encounter: 11:15 - Assessment and plan (1) Urinary tract infection Current Visit: Yes Status: Acute Assessment and plan: July 12. Final urine culture report pending. Continue Rocephin and lactobacillus. Qualifiers: Urinary tract infection type: acute cystitis Hematuria presence: without hematuria Qualified Code(s): N30.00 - Acute cystitis without hematuria (2) Azotemia Current Visit: Yes Status: Acute Assessment and plan: July 12. Resolved. We will decrease IV fluid rate. Anticipate discharge home tomorrow. (3) Aspiration into airway Current Visit: Yes Status: Acute Assessment and plan: July 12. She was evaluated by DIRECT MARKETING SPECIALIST without further recommendations made. Qualifiers: Encounter type: initial encounter Qualified Code(s): T17.908A - Unspecified foreign body in respiratory tract, part unspecified causing other injury, initial encounter (4) Atrial fibrillation Current Visit: No Status: Chronic Assessment and plan: July 12. Continue Coumadin Qualifiers: Atrial fibrillation type: chronic Qualified Code(s): I48.2 - Chronic atrial fibrillation (5) HTN (hypertension) Current Visit: No Status: Chronic Assessment and plan: July 12. Continue lisinopril and metoprolol Qualifiers: Hypertension type: essential hypertension Qualified Code(s): I10 - Essential (primary) hypertension (6) Anemia Current Visit: No Status: Chronic Assessment and plan: July 12. Awaiting results of anemia testing. We will recheck CBC in a.m. Qualifiers: Anemia type: iron deficiency Iron deficiency anemia type: unspecified iron deficiency Qualified Code(s): D50.9 - Iron deficiency anemia, unspecified (7) DM type 2 (diabetes mellitus, type 2) Current Visit: No Status: Chronic Assessment and plan: July 12. Hemoglobin A1c acceptable at 6.2%. She has diet-controlled DM 2. 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 Magnesium level low at 1.3. Will start magnesium oxide. - Subjective Interval history: July 12. She has no new complaints. She states she does not feel well. - Constitutional Vitals: Temp Pulse Resp BP Pulse Ox 98.9 F 80 18 153/72 98 07/12/17 06:33 07/12/17 06:33 07/12/17 06:33 07/12/17 06:33 07/12/17 06:33 Exam: She is resting comfortably in bed. She is wearing NANCY hose. There is no edema of her ankles. Her affect is bright and cheerful. I reviewed her medications and lab results. Internal Medicine: Result - Labs CBC & Chem 7: 07/12/17 05:30 07/12/17 05:30 Labs: Short CBC 07/12/17 Range/Units 05:30 WBC 15.7 H (4.3-11.1) K/mcL Hgb 10.3 L (11.5-15.4) g/dL Hct 34.6 L (35.3-44.9) % Plt Count 364 (140-400) K/mcL Neutrophils # 11.8 H (1.6-8.9) K/mcL BMP 07/12/17 05:30 Sodium 139 Potassium 4.4 Chloride 104 Carbon Dioxide 27 BUN 18 Creatinine 0.61 Glucose 88 Calcium 8.8 - ABG Interpretation ABG results: PT/INR, D-dimer PT 20.4 Seconds (9.4-12.1) H 07/10/17 15:47 - VTE Documentation of Mechanical Device: Graduated compression elastic hosiery Consult Discharge Plan - Plan Referrals: Horace Dejesus MD [Primary Care Provider] - 1 week
[2017-07-12] MEDS: Magnesium Oxide 400 MG TABLET PO SCH ×2 (11:43→19:41)
[2017-07-12] MEDS: cefTRIAXone 1,000 MG in Water for inj. (sterile) 20 ML 10 ML IVPB SCH (16:18)
[2017-07-12] MEDS: *HR* Warfarin 5 MG TABLET PO SCH (19:41)
[2017-07-12] MEDS: *HR* LORazepam 0.5 MG TABLET PO SCH (19:41)
[2017-07-12 21:44] LABS: % Iron Saturation 9 % (15-50); Iron 27 mcg/dL (50-170); Transferrin 211 mg/dL (203-362)
[2017-07-13 05:48] LABS: Basophils # 0.1 K/mcL (0.0-0.2); Basophils % 0.6 %; Eosinophils # 0.7 K/mcL (0.0-0.6); Eosinophils % 5.3 %; Hematocrit 34.5 % (35.3-44.9); Hemoglobin 10.5 g/dL (11.5-15.4); Immature Granulocytes % 0.4 % (0-4); Lymphocytes % 14.6 %; Mean Corpuscular HGB Conc 30.4 g/dL (31.6-35.5); Mean Corpuscular Hemoglobin 26.2 pg (28.0-33.3); Mean Platelet Volume 10.3 fL (9.4-12.4); Monocytes # 1.1 K/mcL (0.0-1.3); Monocytes % 7.7 %; Neutrophils # 9.9 K/mcL (1.6-8.9); Platelet Count 361 K/mcL (140-400); Red Blood Count 4.01 M/mcL (3.82-4.97); Red Cell Distribution Width 17.8 % (11.5-14.5); Segmented Neutrophils % 71.4 %
[2017-07-13 06:29] VITALS: BP 159/93
--- NOTE | 2017-07-13 10:57 | Discharge Summary ---
Date of Encounter: 07/13/17 Time of Encounter: 10:45 - Discharge Diagnosis (1) Urinary tract infection Priority: Primary Status: Acute Qualifiers: Urinary tract infection type: acute cystitis Hematuria presence: without hematuria Qualified Code(s): N30.00 - Acute cystitis without hematuria (2) Azotemia Priority: Secondary Status: Resolved (3) Aspiration into airway Priority: Secondary Status: Acute Qualifiers: Encounter type: initial encounter Qualified Code(s): T17.908A - Unspecified foreign body in respiratory tract, part unspecified causing other injury, initial encounter (4) Atrial fibrillation Priority: Secondary Status: Chronic Qualifiers: Atrial fibrillation type: chronic Qualified Code(s): I48.2 - Chronic atrial fibrillation (5) HTN (hypertension) Priority: Secondary Status: Chronic Qualifiers: Hypertension type: essential hypertension Qualified Code(s): I10 - Essential (primary) hypertension (6) Anemia Priority: Secondary Status: Chronic Qualifiers: Anemia type: iron deficiency Iron deficiency anemia type: unspecified iron deficiency Qualified Code(s): D50.9 - Iron deficiency anemia, unspecified (7) DM type 2 (diabetes mellitus, type 2) Priority: Secondary Status: Chronic Qualifiers: Diabetes mellitus complication status: with unspecified complications Diabetes mellitus halfway insulin use: without halfway use Qualified Code( s): E11.8 - Type 2 diabetes mellitus with unspecified complications (8) Hypomagnesemia Priority: Secondary Status: Acute - Discharge Medications Prescriptions: Ascorbic Acid [Vitamin C] 500 mg PO DAILY #30 tablet Ferrous Sulfate 325 mg PO DAILY #30 tablet Lactobacillus [Culturelle] 1 each PO BID #6 cap.sprink Magnesium Oxide [Mag-Ox] 400 mg PO DAILY #7 tablet Sulfamethoxazole/Trimeth DS [Bactrim DS] 1 each PO BID #6 tablet Home Medications: Amitriptyline [Elavil] 50 mg PO HS 09/02/16 [History] Atorvastatin [Lipitor] 40 mg PO HS 09/02/16 [History] LORazepam [Ativan] 0.5 mg PO HS 09/02/16 [History] Levothyroxine [Synthroid] 100 mcg PO DAILY 09/02/16 [History] Lisinopril [Zestril] 20 mg PO DAILY #30 tablet 09/15/16 [Rx] Metoprolol XL (24 HR) Succ [Toprol Xl] 50 mg PO DAILY #30 tab.er.24h 09/15/16 [ Rx] Warfarin [Coumadin] 7.5 mg PO 1800 02/03/17 [History] Amitriptyline [Elavil] 50 mg PO HS 05/15/17 [History] Clopidogrel [Plavix] 75 mg PO DAILY 05/15/17 [History] Multivit-Min/FA/Lycopen/Lutein [Centrum Silver Tablet] 1 each PO DAILY 05/15/17 [History] Sertraline [Zoloft] 100 mg PO DAILY 05/15/17 [History] Memantine HCl 5 mg PO DAILY 07/10/17 [History] Ascorbic Acid [Vitamin C] 500 mg PO DAILY #30 tablet 07/13/17 [Rx] Ferrous Sulfate 325 mg PO DAILY #30 tablet 07/13/17 [Rx] Lactobacillus [Culturelle] 1 each PO BID #6 cap.sprink 07/13/17 [Rx] Magnesium Oxide [Mag-Ox] 400 mg PO DAILY #7 tablet 07/13/17 [Rx] Sulfamethoxazole/Trimeth DS [Bactrim DS] 1 each PO BID #6 tablet 07/13/17 [Rx] Allergies/Adverse Reactions: 3 Allergy/AdvReac Type Severity Reaction Status Date / Time captopril [From Capoten] Allergy Itching Verified 07/10/17 15:44 nitrofurantoin Allergy Itching Verified 07/10/17 15:44 [From Macrobid] Date of admission: 07/10/17 17:23 Primary care physician: Horace Dejesus MD Consults: 07/11/17 12:51 Consult to Occupational Therapy [CONS] Routine Comment: Evaluate, develop and implement POC Reason for Consult: Weakness Consult to Physical Therapy [CONS] Routine Comment: Evaluate, develop and implement POC Reason for Consult: Weakness Consult to Speech Therapy [CONS] Routine Comment: Evaluate, develop and implement POC Reason for Consult: Possible aspiration, status post multiple strokes Call Completed: No - Patient Status Disposition: Home, Self-Care Condition: Good Functional capacity at discharge: uses cane/walker Overall status at discharge: patient is progressing back to baseline - Discharge Instructions Follow Up With: Horace Dejesus MD [Primary Care Provider] - 1 week - Diet and Activity Activity: resume usual activities as tolerated Diet: advance to your usual diet Hospital course: Ms. Maradiaga is a 81 year old female who was brought to emergency room after family reported she had generalized weakness and some leg pains. They reported she had not been taking in food and fluids adequately. She was evaluated in emergency room and found to have mild azotemia, possible UTI, anemia, and minimal leukocytosis and no left shift. She was admitted to [facility] floor for ongoing care needs. Initial orders were written by the emergency room physician. I saw her on July 11 and performed the history and physical. She was started empirically on Rocephin for UTI. Urine culture returned showing Proteus Mirabilis. She will be continued on Septra DS and Lactobacillus for 3 additional days at discharge. IV fluids were given and azotemia resolved. Her PCP can monitor this. She had evaluation by physical therapy, occupational therapy, and speech/ swallowing therapy. No ongoing interventions were recommended. Anemia testing showed iron 27, transferrin saturation 9%, transferrin 211, ferritin 2083, B12 688, and folate 43. She will be prescribed ferrous sulfate with vitamin C at discharge. Her PCP can monitor labs as needed. Magnesium level returned low at 1.3. She was started on magnesium oxide and this will be continued for 1 week of discharge. Her PCP can follow up. On July 13 she was stable for discharge home. She will follow with her PCP within one week. - Time Spent with Patient Total time spent providing and/or coordinating discharge services: - Constitutional Vitals: Temp Pulse Resp BP Pulse Ox 98.1 F 99 18 159/93 93 07/13/17 06:26 07/13/17 06:26 07/13/17 06:26 07/13/17 06:26 07/13/17 06:26 - VTE Documentation of Mechanical Device: Graduated compression elastic hosiery
[2017-07-13] MEDS: Ascorbic Acid 500 MG TABLET PO SCH (11:46)
[2017-07-13] MEDS: Metoprolol XL (24 HR) Succ 50 MG TAB.ER.24H PO SCH (11:46)
[2017-07-13] MEDS: Lactobacillus 1 EACH CAP.SPRINK PO SCH (11:46)
[2017-07-13] MEDS: Multivit/Ca/Min/Fe/FA 1 TAB TABLET PO SCH (11:46)
[2017-07-13] MEDS: Lisinopril 20 MG TABLET PO SCH (11:46)
[2017-07-13] MEDS: Magnesium Oxide 400 MG TABLET PO SCH (11:46)
== END 2017-07-13 11:55 | disposition home or self-care (01) ==
LOC: INPPIK 15:32 → EMEROOPIK 15:32 → INPPIK 17:27
PROVIDERS: ADMIT Internal Medicine; ATTEND Internal Medicine